=== PATIENT | male | born 1960 | race Caucasian/White ===

== ENCOUNTER 2023-10-11 17:01 | Inpatient (IN) ==
--- NOTE | 2023-10-11 17:22 | Emergency Department Note ---
Impression & Plan Chest discomfort, Elevated troponin, Dyspnea, Elevated d-dimer, Elevated serum lactate dehydrogenase ED Provider Note CHIEF COMPLAINT: Shortness of breath HISTORY OF PRESENTING ILLNESS: This 62-year-old male patient presents to the emergency department from [facility] accompanied by correction officers for evaluation of shortness of breath. The patient states that he had a sudden onset of a feeling like his heart was racing and he became very short of breath around 3 pm today. He also started with a bad headache and dizziness at the same time as the SOB and heart racing started. Still having the headache and dizziness. No change in his vision, change in his speech, or known personality changes. Denies any fevers, cough, or URI symptoms. He feels like the symptoms are coming from his heart. 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 He denies any other history of heart problems. However, over the past 3 months his heart just hasn't been feeling right per patient. [place] like it was beating funny. Denies abdominal pain, nausea, or vomiting. Denies any urinary symptoms or problems with his BMs. He apparently had a temp of 100.7 F prior to transfer and had multiple EKGs that showed sinus tachycardia. The patient is not on any blood thinners and did not take any aspirin. The shortness of breath has improved upon arrival, but still feels like his heart is beating funny. However, he denies actual chest pain. REVIEW OF SYSTEMS: See HPI for pertinent positives and pertinent negatives. ALLERGIES: NKDA MEDICATIONS: None PAST MEDICAL HISTORY: Narcissistic personality disorder, Delusional disorder, hypercholesterolemia, HTN, BPH, CAD, h/o ME with stent placement. PHYSICAL EXAM: Vital Signs: Vitals are noted on the nurse's note and reviewed by myself. GENERAL: Non toxic in appearance and in no acute distress. SKIN: Capillary reflex less than 2 seconds. HEAD: Normocephalic, atraumatic. EARS: Bilateral external auditory canals clear without tragus tenderness. Bilateral tympanic membranes pearly chacon without erythema or effusion. No mastoid tenderness bilaterally. EYES: Pupils equal round and reactive to light and accommodation. Conjunctivae without injection, sclerae without icterus. Extraocular movements intact. NOSE: Patent, turbinates inflamed with no discharge. No sinus tenderness. MOUTH: Mucous membranes moist. Airway patent, uvula midline. Pharynx is not erythematous and not edematous without exudate. Pharynx without postnasal drip. No evidence for peritonsillar abscess. NECK: Supple without nuchal rigidity. No lymphadenopathy. HEART: Regular rate and rhythm without murmurs gallops or rubs. LUNGS: Clear to auscultation bilaterally without wheezes, rales or rhonchi. No accessory muscle use or retractions. ABDOMEN: Positive bowel sounds x 4. Normal tympanic percussion. Soft, nontender, without masses or organomegaly. MUSCULOSKELETAL: Bilateral calves are nontender to palpation. No erythema or edema of the bilateral lower extremities. Negative Homans' sign. NEURO: Patient was alert and oriented to person place and time. Normal mental status exam. No facial droop. Strength 5/5 and equal in the bilateral upper and lower extremities. No focal neurological deficits. DIFFERENTIAL DIAGNOSIS: Differential diagnosis includes angina, ME, pericarditis, myocarditis, aortic dissection, pleurisy, pneumothorax, PE, pneumonia, pneumomediastinum, esophagitis, esophageal spasm, GERD, perforated esophagus, perforated duodenal/gastric ulcer, pancreatitis, cholecystitis, costochondritis, musculoskeletal, bronchitis, URI, or others. ED COURSE AND MEDICAL DECISION MAKING: MONITOR: Continuous youth nutritional monitor: Order was placed for continuous youth nutritional monitor. Patient was placed on the youth nutritional monitor and continuous pulse ox. Patient was noted to be in sinus tachycardia at an initial rate of 110 bpm per my interpretation. EKG: EKG was interpreted by myself as sinus tachycardia at 111 bpm with no acute ST or T wave changes. Repeat EKG was interpreted by myself and Dr. Appiah as normal sinus rhythm at 98 bpm with no acute ST or T wave changes. MEDICATIONS GIVEN: Aspirin 324 mg p.o. chewed. A total of 2 L normal saline solution bolus. DuoNeb treatment. Cefepime 2 g IV. INTERPRETATION OF LABS: I interpreted the labs with full lab results as below in the lab section of this note. CBC without leukocytosis, anemia, or thrombocytopenia. Coags were normal. Sodium 135, glucose 136, magnesium 1.6, total bilirubin 1.5, and AST 40. CMP otherwise normal. Lipase normal. TSH normal. High-sensitivity troponin elevated at 60.7. D-dimer elevated at 5310. Lactate elevated at 2.5. Respiratory bio fire was negative. Blood cultures negative. The patient was unable to give a urine sample while in the emergency department. INTERPRETATION OF IMAGING: Imaging studies were interpreted by myself and read by radiology as per the imaging section of this note. Chest x-ray was negative for acute cardiopulmonary etiology. CT scan of the head without contrast showed no acute intracranial abnormality. CTA of the head and neck with IV contrast showed moderate to high-grade stenosis at the origin of both vertebral arteries, but no other acute abnormalities. CTA of the chest with IV contrast showed no evidence for PE, consolidation, or pleural effusion. However, there was diffuse peribronchial thickening suggestive of bronchitis/reactive airway disease. There is a foci of air trapping seen throughout both lungs as well as coronary artery atherosclerosis and hepatic steatosis. EXTERNAL RECORDS REVIEWED: I reviewed the records sent with the patient from the present. CONSULTATIONS: On-call hospitalist MDM SUMMARY: I examined the patient. The patient states that he has been having a funny feeling in his heart for the past 3 months with an abrupt onset of shortness of breath, headache, and dizziness today. He states that his symptoms have improved, but just still does not feel right. He is having difficulty explaining his exact symptoms to me at this time. He did have a low-grade fever at the present, but is afebrile in the emergency department. The patient is tachycardic, but not hypoxic. An IV lock was placed and labs were drawn. The patient was given aspirin 324 mg p.o. chewed. The patient declined any medication for pain. He was given a DuoNeb treatment without much change in his symptoms. Chest x-ray was negative. EKG was negative for STEMI. Respiratory bio fire was negative. The patient's D-dimer was elevated and CTA of the chest as well as CT/CTA of the head and neck were obtained and were as above. The patient's high-sensitivity troponin was elevated with repeat EKG without evidence of STEMI or acute changes compared to his previous EKG. Repeat troponin was still pending. The patient's lactate also came back elevated at 2.5. Blood cultures are pending. The patient was given cefepime 2 g IV. The patient was given a total of 2 L normal saline solution bolus based on ideal body weight, but also did not want to overload the patient with fluids due to his cardiac symptoms. I had a meaningful discussion about this patient with Dr. Appiah who agrees with my assessment and the treatment plan. Due to the patient's elevated troponin and elevated lactate along with his symptoms, we feel the patient requires admission for further evaluation and treatment. I spoke with the on-call hospitalist who agreed to admit the patient for further management. Please refer to their dictation for further details. The patient's care was transferred in stable condition. DIAGNOSIS: Chest pain and shortness of breath with elevated troponin concerning for NSTEMI Elevated lactate Elevated D-dimer Past Med/Surg History Medical History (Updated 10/11/23 @ 23:49 by Giselle Ring PA-C) Ischemic cardiomyopathy BPH (benign prostatic hyperplasia) HTN (hypertension) Hypercholesterolemia Delusional disorder Narcissistic personality disorder Smoker CAD (coronary artery disease) stent in 2017 Surgical History (Updated 10/11/23 @ 21:38 by Janis Bains DO) History of thumb surgery History of tonsillectomy History of ankle surgery Family History (Updated 10/11/23 @ 21:36 by Janis Bains DO) Mother Coronary heart disease Father , at 53 yo from [place] Coronary heart disease Social History Smoking Status: Current every day smoker Tobacco Type: E-cigarettes / Vaping Cigarettes Per Day: 2; Do You Dip or Chew Tobacco: No; Tobacco Cessation Education Requested by Patient: No Hx Substance Use: No Preferred Language: Lao Communication Ability: Effective Livestock Nutritionist Required: No Beliefs That Will Affect Care: None Current Living Situation: Other Current Living Situation Comment: correctional facility Other Information That Helps Us Care for You: No Feels Safe at Home: Yes Safety Concerns: Feels Safe At This Time Assistive Devices: Denture - Upper and Glasses Allergies Allergies Allergy/AdvReac Type Severity Reaction Status Date / Time No Known Allergies Allergy Verified 10/11/23 18:53 Home Meds Home Medications Medication Instructions Recorded Confirmed No Known Home Medications 10/11/23 10/11/23 Results & Data (ED) Vital Signs Vital Signs - 24 hr 10/11/23 17:02 10/11/23 17:09 10/11/23 17:10 Temperature 36.6 C Temperature Source Oral Pulse Rate 105 H 105 H 110 H Pulse Rate from SpO2 Sensor 105 H 110 H Pulse Rhythm Regular Pulse Strength Normal Respiratory Rate 20 20 26 H Respiratory Effort / Characteristics Non-Labored Spontaneous Respiratory Depth Normal Respiratory Pattern Regular Blood Pressure 112/75 Blood Pressure Mean 87 Blood Pressure Position Sitting Pulse Oximetry 94 94 94 Pulse Oximetry [Index Finger] Oxygen Delivery Method Room Air Room Air Oxygen Delivery Method [Index Finger] Oxygen Flow Rate Sepsis Recent Fever Within 48 Hours Yes Sepsis New/Unexplained Change in Mental Status N/A Sepsis Action Taken by Nursing No Action Required Oxygen Flow Rate - Titration Pulse Oximetry Post Tiitration 10/11/23 17:15 10/11/23 17:15 10/11/23 17:15 Temperature Temperature Source Pulse Rate Pulse Rate from SpO2 Sensor Pulse Rhythm Pulse Strength Respiratory Rate Respiratory Effort / Characteristics Non-Labored Spontaneous Respiratory Depth Normal Respiratory Pattern Regular Blood Pressure Blood Pressure Mean Blood Pressure Position Pulse Oximetry 99 94 Pulse Oximetry [Index Finger] Oxygen Delivery Method Room Air Room Air Oxygen Delivery Method [Index Finger] Oxygen Flow Rate 4 Sepsis Recent Fever Within 48 Hours Sepsis New/Unexplained Change in Mental Status Sepsis Action Taken by Nursing Oxygen Flow Rate - Titration 0 Pulse Oximetry Post Tiitration 94 10/11/23 17:20 10/11/23 17:23 10/11/23 17:30 Temperature Temperature Source Pulse Rate 105 H 110 H 104 H Pulse Rate from SpO2 Sensor 105 H 104 H Pulse Rhythm Pulse Strength Respiratory Rate 23 22 Respiratory Effort / Characteristics Respiratory Depth Respiratory Pattern Blood Pressure Blood Pressure Mean Blood Pressure Position Pulse Oximetry 93 96 Pulse Oximetry [Index Finger] Oxygen Delivery Method Oxygen Delivery Method [Index Finger] Oxygen Flow Rate Sepsis Recent Fever Within 48 Hours Sepsis New/Unexplained Change in Mental Status Sepsis Action Taken by Nursing Oxygen Flow Rate - Titration Pulse Oximetry Post Tiitration 10/11/23 17:40 10/11/23 17:50 10/11/23 18:00 Temperature Temperature Source Pulse Rate 100 H 97 H 98 H Pulse Rate from SpO2 Sensor 100 H 97 H 96 H Pulse Rhythm Pulse Strength Respiratory Rate 21 26 H 21 Respiratory Effort / Characteristics Respiratory Depth Respiratory Pattern Blood Pressure Blood Pressure Mean Blood Pressure Position Pulse Oximetry 94 93 94 Pulse Oximetry [Index Finger] Oxygen Delivery Method Room Air Oxygen Delivery Method [Index Finger] Oxygen Flow Rate Sepsis Recent Fever Within 48 Hours Sepsis New/Unexplained Change in Mental Status Sepsis Action Taken by Nursing Oxygen Flow Rate - Titration Pulse Oximetry Post Tiitration 10/11/23 18:19 10/11/23 18:20 10/11/23 18:30 Temperature Temperature Source Pulse Rate 96 H 102 H Pulse Rate from SpO2 Sensor 96 H 102 H 97 H Pulse Rhythm Pulse Strength Respiratory Rate 25 H 21 25 H Respiratory Effort / Characteristics Respiratory Depth Respiratory Pattern Blood Pressure Blood Pressure Mean Blood Pressure Position Pulse Oximetry 96 96 95 Pulse Oximetry [Index Finger] Oxygen Delivery Method Room Air Oxygen Delivery Method [Index Finger] Oxygen Flow Rate Sepsis Recent Fever Within 48 Hours Sepsis New/Unexplained Change in Mental Status Sepsis Action Taken by Nursing Oxygen Flow Rate - Titration Pulse Oximetry Post Tiitration 10/11/23 18:56 10/11/23 18:56 10/11/23 19:00 Temperature Temperature Source Pulse Rate 100 H Pulse Rate from SpO2 Sensor 100 H Pulse Rhythm Pulse Strength Respiratory Rate 6 L 19 Respiratory Effort / Characteristics Respiratory Depth Respiratory Pattern Blood Pressure 108/58 L Blood Pressure Mean 65 Blood Pressure Position Pulse Oximetry 96 Pulse Oximetry [Index Finger] Oxygen Delivery Method Oxygen Delivery Method [Index Finger] Oxygen Flow Rate Sepsis Recent Fever Within 48 Hours Sepsis New/Unexplained Change in Mental Status Sepsis Action Taken by Nursing Oxygen Flow Rate - Titration Pulse Oximetry Post Tiitration 10/11/23 19:10 10/11/23 19:20 10/11/23 19:30 Temperature Temperature Source Pulse Rate 99 H 98 H 98 H Pulse Rate from SpO2 Sensor 100 H 98 H 99 H Pulse Rhythm Pulse Strength Respiratory Rate 23 22 19 Respiratory Effort / Characteristics Respiratory Depth Respiratory Pattern Blood Pressure Blood Pressure Mean Blood Pressure Position Pulse Oximetry 91 92 94 Pulse Oximetry [Index Finger] Oxygen Delivery Method Oxygen Delivery Method [Index Finger] Oxygen Flow Rate Sepsis Recent Fever Within 48 Hours Sepsis New/Unexplained Change in Mental Status Sepsis Action Taken by Nursing Oxygen Flow Rate - Titration Pulse Oximetry Post Tiitration 10/11/23 19:40 10/11/23 19:50 10/11/23 20:00 Temperature Temperature Source Pulse Rate 98 H 95 H 92 H Pulse Rate from SpO2 Sensor 97 H 95 H 93 H Pulse Rhythm Pulse Strength Respiratory Rate 22 19 26 H Respiratory Effort / Characteristics Respiratory Depth Respiratory Pattern Blood Pressure Blood Pressure Mean Blood Pressure Position Pulse Oximetry 94 94 95 Pulse Oximetry [Index Finger] Oxygen Delivery Method Room Air Oxygen Delivery Method [Index Finger] Oxygen Flow Rate Sepsis Recent Fever Within 48 Hours Sepsis New/Unexplained Change in Mental Status Sepsis Action Taken by Nursing Oxygen Flow Rate - Titration Pulse Oximetry Post Tiitration 10/11/23 20:10 10/11/23 20:16 10/11/23 20:16 Temperature Temperature Source Pulse Rate 95 H 107 H Pulse Rate from SpO2 Sensor 94 H 105 H Pulse Rhythm Pulse Strength Respiratory Rate 5 L 15 Respiratory Effort / Characteristics Respiratory Depth Respiratory Pattern Blood Pressure 106/70 106/70 Blood Pressure Mean 82 83 Blood Pressure Position Pulse Oximetry 100 95 Pulse Oximetry [Index Finger] Oxygen Delivery Method Room Air Oxygen Delivery Method [Index Finger] Oxygen Flow Rate Sepsis Recent Fever Within 48 Hours Sepsis New/Unexplained Change in Mental Status Sepsis Action Taken by Nursing Oxygen Flow Rate - Titration Pulse Oximetry Post Tiitration 10/11/23 20:20 10/11/23 20:30 10/11/23 20:30 Temperature Temperature Source Pulse Rate 110 H 112 H Pulse Rate from SpO2 Sensor 111 H 109 H Pulse Rhythm Pulse Strength Respiratory Rate 14 20 Respiratory Effort / Characteristics Respiratory Depth Respiratory Pattern Blood Pressure 110/73 Blood Pressure Mean 79 Blood Pressure Position Pulse Oximetry 98 96 Pulse Oximetry [Index Finger] Oxygen Delivery Method Oxygen Delivery Method [Index Finger] Oxygen Flow Rate Sepsis Recent Fever Within 48 Hours Sepsis New/Unexplained Change in Mental Status Sepsis Action Taken by Nursing Oxygen Flow Rate - Titration Pulse Oximetry Post Tiitration 10/11/23 20:40 10/11/23 20:50 10/11/23 20:55 Temperature Temperature Source Pulse Rate 111 H 110 H Pulse Rate from SpO2 Sensor 110 H 110 H Pulse Rhythm Pulse Strength Respiratory Rate 20 19 Respiratory Effort / Characteristics Respiratory Depth Respiratory Pattern Blood Pressure Blood Pressure Mean Blood Pressure Position Pulse Oximetry 96 97 Pulse Oximetry [Index Finger] 98 Oxygen Delivery Method Oxygen Delivery Method [Index Finger] Room Air Oxygen Flow Rate Sepsis Recent Fever Within 48 Hours Sepsis New/Unexplained Change in Mental Status Sepsis Action Taken by Nursing Oxygen Flow Rate - Titration Pulse Oximetry Post Tiitration 10/11/23 21:32 10/11/23 21:44 10/11/23 21:44 Temperature Temperature Source Pulse Rate 106 H Pulse Rate from SpO2 Sensor Pulse Rhythm Pulse Strength Respiratory Rate 15 15 Respiratory Effort / Characteristics Respiratory Depth Respiratory Pattern Blood Pressure 110/67 Blood Pressure Mean 85 Blood Pressure Position Pulse Oximetry Pulse Oximetry [Index Finger] Oxygen Delivery Method Oxygen Delivery Method [Index Finger] Oxygen Flow Rate Sepsis Recent Fever Within 48 Hours Sepsis New/Unexplained Change in Mental Status Sepsis Action Taken by Nursing Oxygen Flow Rate - Titration Pulse Oximetry Post Tiitration Laboratory Data 10/11/23 17:15 10/11/23 17:15 Lab Results 10/11/23 10/11/23 10/11/23 Range/Units 17:15 18:02 19:35 WBC 9.15 (4.8-10.8) K/ul RBC 5.16 (4.70-6.10) M/uL Hgb 15.0 (14.0-18.0) g/dl Hct 44.3 (42.0-52.0) % MCV 85.9 (80.0-100.0) fL MCH 29.1 (25.0-34.0) pg MCHC 33.9 (32.0-36.0) g/dL RDW Std Deviation 41.4 (36.4-46.3) fL RDW Coeff of Kaleb 13.2 (11.5-14.5) % Plt Count 189 (130-400) K/uL MPV 11.0 (9.4-12.4) fL Immature Gran % (Auto) 2.0 % Neut % (Auto) 92.5 % Lymph % (Auto) 3.1 % [place] % (Auto) 1.9 % Eos % (Auto) 0.2 % Baso % (Auto) 0.3 % Neut # (Auto) 8.47 H (1.40-6.50) K/uL Lymph # (Auto) 0.28 L (1.20-3.40) K/uL [place] # (Auto) 0.17 (0.11-0.59) K/uL Eos # (Auto) 0.02 (0.00-0.50) K/uL Baso # (Auto) 0.03 (0.00-0.20) K/uL Immature Gran # (Auto) 0.18 (0.01-0.20) K/uL PT 11.6 (9.0-12.0) Seconds INR 1.1 (0.9-1.1) APTT 27 (21-31) Seconds PTT Ratio 1.0 D-Dimer 5310 H* (0-500) ug/L FEU Sodium 135 L (136-145) mmol/L Potassium 4.0 (3.5-5.1) mmol/L Chloride 104 (98-107) mmol/L Carbon Dioxide 21 (21-32) mmol/L Anion Gap 10 (3-11) BUN 21 (6-23) mg/dl Creatinine 1.28 (0.6-1.4) mg/dl Est Cr Clr Drug Dosing Not Reportable Est GFR ( Amer) 70.0 ml/min Est GFR (Non-Af Amer) 60.4 ml/min BUN/Creatinine Ratio 16.4 (10-20) Glucose 136 H (70-99(Fasting)) mg/dl Lactate (0.4-2.0) mmol/L Calcium 8.6 (8.6-10.3) mg/dl Magnesium 1.6 L (1.7-2.4) mg/dl Total Bilirubin 1.5 H (0.2-1.0) mg/dl AST 40 H (13-39) U/L ALT 41 (7-52) U/L Alkaline Phosphatase 55 (34-104) U/L Troponin I High Sens 60.7 H* 282.9 H* D (0-20) pg/ml Total Protein 7.0 (6.0-8.3) gm/dl Albumin 3.9 (3.4-5.0) gm/dl Globulin 3.1 (2.5-4.0) gm/dl Albumin/Globulin Ratio 1.3 (0.9-2) Lipase 18 (11-82) U/L TSH 1.114 (0.300-4.500) uIu/ml Adenovirus (PCR) Not Detected (NotDetected) B. pertussis DNA (PCR) Not Detected (NotDetected) B.parapertussis DNA PCR Not Detected (NotDetected) C. pneumoniae DNA (PCR) Not Detected (NotDetected) Coronavirus OC43 (PCR) Not Detected (NotDetected) Coronavirus HKU1 (PCR) Not Detected (NotDetected) Coronavirus 229E (PCR) Not Detected (NotDetected) SARS-CoV-2 (PCR) Not Detected (NotDetected) Coronavirus NL63 (PCR) Not Detected (NotDetected) Human Metapneumovir PCR Not Detected (NotDetected) Influenza Type A (PCR) Not Detected (NotDetected) Influenza Type B (PCR) Not Detected (NotDetected) M. pneumoniae (PCR) Not Detected (NotDetected) Parainfluenza 1 (PCR) Not Detected (NotDetected) Parainfluenza 2 (PCR) Not Detected (NotDetected) Parainfluenza 3 (PCR) Not Detected (NotDetected) Parainfluenza 4 (PCR) Not Detected (NotDetected) RSV (PCR) Not Detected (NotDetected) Entero/Rhino (PCR) Not Detected (NotDetected) 10/11/23 Range/Units 19:50 WBC (4.8-10.8) K/ul RBC (4.70-6.10) M/uL Hgb (14.0-18.0) g/dl Hct (42.0-52.0) % MCV (80.0-100.0) fL MCH (25.0-34.0) pg MCHC (32.0-36.0) g/dL RDW Std Deviation (36.4-46.3) fL RDW Coeff of Kaleb (11.5-14.5) % Plt Count (130-400) K/uL MPV (9.4-12.4) fL Immature Gran % (Auto) % Neut % (Auto) % Lymph % (Auto) % [place] % (Auto) % Eos % (Auto) % Baso % (Auto) % Neut # (Auto) (1.40-6.50) K/uL Lymph # (Auto) (1.20-3.40) K/uL [place] # (Auto) (0.11-0.59) K/uL Eos # (Auto) (0.00-0.50) K/uL Baso # (Auto) (0.00-0.20) K/uL Immature Gran # (Auto) (0.01-0.20) K/uL PT (9.0-12.0) Seconds INR (0.9-1.1) APTT (21-31) Seconds PTT Ratio D-Dimer (0-500) ug/L FEU Sodium (136-145) mmol/L Potassium (3.5-5.1) mmol/L Chloride (98-107) mmol/L Carbon Dioxide (21-32) mmol/L Anion Gap (3-11) BUN (6-23) mg/dl Creatinine (0.6-1.4) mg/dl Est Cr Clr Drug Dosing Est GFR ( Amer) ml/min Est GFR (Non-Af Amer) ml/min BUN/Creatinine Ratio (10-20) Glucose (70-99(Fasting)) mg/dl Lactate 2.5 H* (0.4-2.0) mmol/L Calcium (8.6-10.3) mg/dl Magnesium (1.7-2.4) mg/dl Total Bilirubin (0.2-1.0) mg/dl AST (13-39) U/L ALT (7-52) U/L Alkaline Phosphatase (34-104) U/L Troponin I High Sens (0-20) pg/ml Total Protein (6.0-8.3) gm/dl Albumin (3.4-5.0) gm/dl Globulin (2.5-4.0) gm/dl Albumin/Globulin Ratio (0.9-2) Lipase (11-82) U/L TSH (0.300-4.500) uIu/ml Adenovirus (PCR) (NotDetected) B. pertussis DNA (PCR) (NotDetected) B.parapertussis DNA PCR (NotDetected) C. pneumoniae DNA (PCR) (NotDetected) Coronavirus OC43 (PCR) (NotDetected) Coronavirus HKU1 (PCR) (NotDetected) Coronavirus 229E (PCR) (NotDetected) SARS-CoV-2 (PCR) (NotDetected) Coronavirus NL63 (PCR) (NotDetected) Human Metapneumovir PCR (NotDetected) Influenza Type A (PCR) (NotDetected) Influenza Type B (PCR) (NotDetected) M. pneumoniae (PCR) (NotDetected) Parainfluenza 1 (PCR) (NotDetected) Parainfluenza 2 (PCR) (NotDetected) Parainfluenza 3 (PCR) (NotDetected) Parainfluenza 4 (PCR) (NotDetected) RSV (PCR) (NotDetected) Entero/Rhino (PCR) (NotDetected) Administered Medications Atorvastatin Calcium (Atorvastatin 40 Mg Tab) 40 mg PO HS FLORECITA Stop: 11/10/23 21:59 Last Admin: 10/11/23 23:00 Dose: 40 mg Documented By: DLH Magnesium Sulfate/Dextrose (Magnesium Sulfate / D5w) 1 gm in 100 mls @ 50 mls/hr IV Q2H FLORECITA Stop: 10/12/23 03:29 Last Admin: 10/11/23 22:18 Dose: 50 mls/hr Documented By: SUKHI Heparin Sodium/Dextrose (Heparin Sodium/Dextrose) 25,000 units in 500 mls @ 31 mls/hr IV .[id number] [facility] [place]; Protocol Stop: 11/10/23 22:14 Last Admin: 10/11/23 22:36 Dose: 1,550 units/hr, 31 mls/hr Documented By: SUKHI Co-signed By: KVNG Metoprolol Tartrate (Metoprolol Tartrate 25 Mg Tab) 25 mg PO BID [facility] [place] Stop: 11/10/23 21:59 Last Admin: 10/11/23 22:18 Dose: 25 mg Documented By: SUKHI Nitroglycerin (Nitroglycerin 2% Ointment 30gm Tube) 0.5 inch EXT Q6H [facility] [place] Stop: 11/10/23 21:59 Last Admin: 10/11/23 22:18 Dose: 0.5 inch Documented By: SUKHI Discontinued Medications Acetaminophen (Acetaminophen 500 Mg Tab) 1,000 mg PO ONCE ONE Stop: 10/11/23 21:53 Last Admin: 10/11/23 22:20 Dose: 1,000 mg Documented By: USKHI Albuterol (Albut/Ipratrop 3mg/0.5mg Neb 3 Ml Vial) 3 ml NEB NOW STA; Protocol Stop: 10/11/23 19:29 Last Admin: 10/11/23 20:00 Dose: 3 ml Documented By: CORDELIA Aspirin (Aspirin Chew 324 Mg) 324 mg PO NOW STA Stop: 10/11/23 17:36 Last Admin: 10/11/23 18:20 Dose: 324 mg Documented By: BALTAZAR Heparin Sodium (Porcine) (Heparin Sod (Porcine) 1000 Unit/Ml) 7,000 units IV NOW ONE Stop: 10/11/23 22:31 Last Admin: 10/11/23 22:36 Dose: 7,000 units Documented By: SUKHI Co-signed By: KVNG Heparin Sodium (Porcine) (Heparin Sod (Porcine) 1000 Unit/Ml) Confirm Administered Dose 1,000 units .ROUTE .STK-MED ONE Stop: 10/11/23 22:21 Last Admin: 10/11/23 22:22 Dose: Not Given Documented By: SUKHI Heparin Sodium/Dextrose (Heparin 14447 Unit/500 Ml D5w) Confirm Administered Dose 25,000 units IV .STK-MED ONE Stop: 10/11/23 22:21 Last Admin: 10/11/23 22:21 Dose: Not Given Documented By: SUKHI Sodium Chloride (Nss) 500 mls @ 999 mls/hr IV .Q31M STA Stop: 10/11/23 18:05 Last Infusion: 10/11/23 19:05 Dose: Infused Documented By: Admin: 10/11/23 18:20 Dose: 999 mls/hr Documented By: BALTAZAR Sodium Chloride (Nss) 500 mls @ 999 mls/hr IV .Q31M ONE Stop: 10/11/23 19:13 Last Infusion: 10/11/23 20:29 Dose: Infused Documented By: Admin: 10/11/23 19:55 Dose: 999 mls/hr Documented By: CORDELIA Cefepime HCl (Maxipime) 2,000 mg in 20 mls @ 5 mls/min IV NOW STA; Protocol Stop: 10/11/23 18:46 Last Admin: 10/11/23 19:56 Dose: 5 mls/min Documented By: CORDELIA Sodium Chloride (Nss) 1,000 mls @ 999 mls/hr IV .Q1H1M ONE Stop: 10/11/23 21:17 Last Infusion: 10/11/23 21:33 Dose: Infused Documented By: Admin: 10/11/23 20:29 Dose: 999 mls/hr Documented By: CORDELIA Ioversol (Optiray 320 125ml) 119 ml IV ONCE ONE Stop: 10/11/23 18:42 Last Admin: 10/11/23 18:41 Dose: 119 ml Documented By: STEFFANY Morphine Sulfate (Morphine Sulfate 2 Mg/Ml Carp) 2 mg IV NOW STA Stop: 10/11/23 21:53 Last Admin: 10/11/23 22:18 Dose: 2 mg Documented By: SUKHI Imaging Data Radiologist's Impression: Chest X-Ray 10/11/23 17:35 SINGLE VIEW CHEST CLINICAL HISTORY: Atypical chest pain. FINDINGS: 2 AP, portable, upright chest radiographs are obtained. No prior studies are available for comparison at the time of dictation. The examination is degraded by portable technique and apical lordotic positioning. The cardiomediastinal silhouette is unremarkable. There is mild bibasilar atelectasis. The lungs and pleural spaces are otherwise clear. No pneumothorax is seen. The bony thorax is grossly intact. IMPRESSION: No active disease in the chest. ACT 112: Negative or not required by law. Electronically signed by: Jose L Garcia M.D. 10/11/2023 6:[address] 10/11/23 17:35 CT SCAN OF THE BRAIN WITHOUT IV CONTRAST CLINICAL HISTORY: Headache and dizziness. COMPARISON STUDY: No priors. TECHNIQUE: Unenhanced axial CT scan of the brain is performed from the vertex to the skull base. A dose lowering technique was utilized adhering to the principles of ALARA. CT DOSE: 625.8 mGy.cm FINDINGS: Brain parenchyma: There is age-related involutional change noting minimal microangiopathic disease. There is no hemorrhage, mass effect, or evidence of acute territorial ischemia by CT criteria. Chacon-white matter differentiation is preserved. No extra-axial fluid collection is seen. Ventricles, sulci, cisterns: Prominent secondary to involutional change. Intracranial vasculature: There is atherosclerotic calcification of the cavernous carotid arteries. Calvarium: Unremarkable. Sinuses and mastoids: The visualized paranasal sinuses are clear. The mastoid air cells are well pneumatized. Orbits: The bony orbits are grossly intact. IMPRESSION: There is no hemorrhage, mass effect, or evidence of acute territorial ischemia by CT criteria. ACT 112: Negative or not required by law. Electronically signed by: Jose L Garcia M.D. 10/11/2023 6:14 PM Chest CTA 10/11/23 18:20 CT ANGIOGRAM OF THE CHEST CLINICAL HISTORY: Dyspnea. Headache and dizziness. COMPARISON STUDY: Chest x-ray dated 10/11/2023. TECHNIQUE: Following the IV administration of 119 cc of Optiray 320, CT angiogram of the chest was performed from the upper abdomen to the thoracic inlet utilizing the pulmonary embolus protocol. Images are reviewed in the axial, sagittal, and coronal planes. 3-D MIPS images are created and assessed. IV contrast was administered without complication. A dose lowering technique was utilized adhering to the principles of ALARA. FINDINGS: Thyroid: Imaged portions of the thyroid gland are normal in size and attenuation. Thoracic aorta: There is mild atherosclerotic calcification of the thoracic aorta, which is normal in caliber and demonstrates standard 3-vessel arch anatomy. No dissection is seen. Pulmonary vasculature: The pulmonary trunk is normal in caliber. There are no filling defects identified in main, lobar, or segmental pulmonary branches to suggest pulmonary embolus. Heart: The heart is top normal in size and without pericardial effusion. The coronary arteries are densely calcified. Lungs and pleural spaces: There is mild emphysematous change. No airspace consolidation or pleural effusion is identified. Foci of air trapping are seen throughout both lungs, and there are foci of scar/atelectasis throughout both lungs. Diffuse peribronchial thickening suggests bronchitis/reactive airway disease. The trachea and central airways are clear. A 3 mm pleural-based nodule at the left lung base is seen on image #56. Mediastinum: There is no mediastinal lymphadenopathy. Linda: Clear. Axillae: There is no axillary lymphadenopathy. Upper abdomen: There is severe hepatic steatosis. Fatty sparing is noted adjacent to the gallbladder fossa. A 1.0 cm cyst is noted in the left lobe of the liver. A small hiatal hernia is identified. Skeletal structures: No lytic or blastic bony lesions are seen. Degenerative change is noted in the shoulders and spine. IMPRESSION: 1. There is no evidence of pulmonary embolus in the main, lobar, or segmental pulmonary arteries. 2. There is no airspace consolidation or pleural effusion. 3. Diffuse peribronchial thickening suggests bronchitis/reactive airway disease. Correlate clinically. 4. Foci of air trapping are seen throughout both lungs. 5. Coronary artery atherosclerosis. 6. Hepatic steatosis. 7. Additional findings as above. ACT 112: Negative or not required by law. Electronically signed by: Jose L Garcia M.D. 10/11/2023 7:15 PM Head CTA 10/11/23 18:20 CT ANGIOGRAM OF THE BRAIN; CT ANGIOGRAM OF THE NECK CLINICAL HISTORY: Headache and dizziness. COMPARISON STUDY: Unenhanced CT of the brain performed the same day 10/11/2023. TECHNIQUE: Following the IV administration of 119 of Optiray 320, CT angiogram of the head and neck was performed from the aortic arch to the vertex. Images are reviewed in the axial, sagittal, and coronal planes. 3-D MIPS images are created and assessed. IV contrast was administered without complication. All measurements were calculated based on NASCET criteria. A dose lowering technique was utilized adhering to the principles of ALARA. CT DOSE: 2610.85 mGy.cm FINDINGS: Brain parenchyma: There is no evidence of hemorrhage, mass effect, or acute territorial ischemia by CT criteria noting angiographic phase technique. There is no evidence of enhancing mass lesion on the angiogram phase images. The ventricles, sulci, and cisterns are normal in configuration. Chacon-white matter differentiation is preserved. No extra-axial fluid collection is seen. Thoracic aorta: There is atherosclerotic calcification of the thoracic aorta. Visualized portions of the thoracic aorta are normal in caliber. The aortic arch demonstrates standard 3-vessel anatomy. Right carotid arterial system: The right common carotid artery is widely patent, as are the right internal and external carotid arteries. Calcified plaque is noted in the carotid bulb. Left carotid arterial system: The left common carotid artery is widely patent, as are the left internal and external carotid arteries. Calcified plaque is noted in the carotid bulb. Vertebral arteries: There is moderate to high-grade stenosis at the origin of both vertebral arteries. The vertebral arteries are otherwise patent bilaterally and codominant. Subclavian arteries: Widely patent bilaterally. Intracranial vasculature: There is atherosclerotic calcification of the carotid bulbs. The internal carotid arteries are patent at the skull base, as are the anterior and middle cerebral arteries bilaterally. The vertebrobasilar system and posterior cerebral arteries are widely patent. The vertebral arteries are codominant. There is origin of the left posterior cerebral artery. There is no aneurysm, high-grade stenosis, or focal vessel cut off seen throughout the intracranial circulation. Jugular veins: Patent bilaterally. Dural sinuses: Patent. Lung apices: There is mild emphysematous change. Upper lobe lung parenchyma is otherwise clear as imaged. Soft tissues: The visualized pharyngeal soft tissues are normal in appearance noting angiographic phase technique. The oropharyngeal airway appears widely patent. The salivary and thyroid glands are normal in appearance. No cervical lymphadenopathy is seen. Skeletal structures: The calvarium appears intact. The cervical spine is maintained noting multilevel spondylosis. Orbits: The bony orbits are intact. Orbital contents are normal as visualized. Sinuses and mastoids: There is trace mucosal thickening within the left maxillary antrum, the ethmoid sinuses, and the frontal sinuses. The mastoid air cells are well pneumatized. IMPRESSION: 1. There is no evidence of hemorrhage, mass effect, or acute territorial ischemia by CT criteria noting angiographic phase technique. 2. Unremarkable CT angiogram of the brain. 3. 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 4. Otherwise unremarkable CT angiogram of the neck. ACT 112: Negative or not required by law. Electronically signed by: Jose L Garcia M.D. 10/11/2023 7:08 PM Neck CTA 10/11/23 18:20 CT ANGIOGRAM OF THE BRAIN; CT ANGIOGRAM OF THE NECK CLINICAL HISTORY: Headache and dizziness. COMPARISON STUDY: Unenhanced CT of the brain performed the same day 10/11/2023. TECHNIQUE: Following the IV administration of 119 of Optiray 320, CT angiogram of the head and neck was performed from the aortic arch to the vertex. Images are reviewed in the axial, sagittal, and coronal planes. 3-D MIPS images are created and assessed. IV contrast was administered without complication. All measurements were calculated based on NASCET criteria. A dose lowering technique was utilized adhering to the principles of ALARA. CT DOSE: 2610.85 mGy.cm FINDINGS: Brain parenchyma: There is no evidence of hemorrhage, mass effect, or acute territorial ischemia by CT criteria noting angiographic phase technique. There is no evidence of enhancing mass lesion on the angiogram phase images. The ventricles, sulci, and cisterns are normal in configuration. Chacon-white matter differentiation is preserved. No extra-axial fluid collection is seen. Thoracic aorta: There is atherosclerotic calcification of the thoracic aorta. Visualized portions of the thoracic aorta are normal in caliber. The aortic arch demonstrates standard 3-vessel anatomy. Right carotid arterial system: The right common carotid artery is widely patent, as are the right internal and external carotid arteries. Calcified plaque is noted in the carotid bulb. Left carotid arterial system: The left common carotid artery is widely patent, as are the left internal and external carotid arteries. Calcified plaque is noted in the carotid bulb. Vertebral arteries: There is moderate to high-grade stenosis at the origin of both vertebral arteries. The vertebral arteries are otherwise patent bilaterally and codominant. Subclavian arteries: Widely patent bilaterally. Intracranial vasculature: There is atherosclerotic calcification of the carotid bulbs. The internal carotid arteries are patent at the skull base, as are the anterior and middle cerebral arteries bilaterally. The vertebrobasilar system and posterior cerebral arteries are widely patent. The vertebral arteries are codominant. There is origin of the left posterior cerebral artery. There is no aneurysm, high-grade stenosis, or focal vessel cut off seen throughout the intracranial circulation. Jugular veins: Patent bilaterally. Dural sinuses: Patent. Lung apices: There is mild emphysematous change. Upper lobe lung parenchyma is otherwise clear as imaged. Soft tissues: The visualized pharyngeal soft tissues are normal in appearance noting angiographic phase technique. The oropharyngeal airway appears widely patent. The salivary and thyroid glands are normal in appearance. No cervical lymphadenopathy is seen. Skeletal structures: The calvarium appears intact. The cervical spine is maintained noting multilevel spondylosis. Orbits: The bony orbits are intact. Orbital contents are normal as visualized. Sinuses and mastoids: There is trace mucosal thickening within the left maxillary antrum, the ethmoid sinuses, and the frontal sinuses. The mastoid air cells are well pneumatized. IMPRESSION: 1. There is no evidence of hemorrhage, mass effect, or acute territorial ischemia by CT criteria noting angiographic phase technique. 2. Unremarkable CT angiogram of the brain. 3. 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 4. Otherwise unremarkable CT angiogram of the neck. ACT 112: Negative or not required by law. Electronically signed by: Jose L Garcia M.D. 10/11/2023 7:08 PM Discharge Plan Visit Data Chief Complaint: Shortness of Breath/Dyspnea ED Provider: Jose L Appiah ED Midlevel Provider: Giselle Ring Discharge Problem: Chest discomfort, Elevated troponin, Dyspnea, Elevated d-dimer, Elevated serum lactate dehydrogenase Patient Disposition: Admitted As Inpatient Condition: Good Discharge Instructions Interventions: ED Discharge Assessment Last Done: 10/11/23 22:13 Discharge Problem: Dyspnea Qualifiers: Dyspnea type: unspecified Qualified Code(s): R06.00 - Dyspnea, unspecified
[2023-10-11] MEDS ORDERED: ASPIRIN CHEW 324 MG PO STA (17:35)
[2023-10-11] MEDS ORDERED: SODIUM CHLORIDE 0.9% 500 ML IV STA (17:35)
[2023-10-11 18:13] LABS: INR 1.1 (0.9-1.1); Partial Thromboplastin Time 27 Seconds (21-31); Prothrombin Time 11.6 Seconds (9.0-12.0)
[2023-10-11 18:16] LABS: Albumin Level 3.9 gm/dl (3.4-5.0); Anion Gap 10 (3-11); Bilirubin,Total 1.5 mg/dl (0.2-1.0); Calcium 8.6 mg/dl (8.6-10.3); Carbon Dioxide 21 mmol/L (21-32); Chloride 104 mmol/L (98-107); Magnesium 1.6 mg/dl (1.7-2.4); Sodium 135 mmol/L (136-145)
--- NOTE | 2023-10-11 18:16 | CT Scan Report ---
CT SCAN OF THE BRAIN WITHOUT IV CONTRAST CLINICAL HISTORY: Headache and dizziness. COMPARISON STUDY: No priors. TECHNIQUE: Unenhanced axial CT scan of the brain is performed from the vertex to the skull base. A do se lowering technique was utilized adhering to the principles of ALARA. CT DOSE: 625.8 mGy.cm FINDINGS: Brain parenchyma: There is age-related involutional change noting minimal microangiopathic disease. T here is no hemorrhage, mass effect, or evidence of acute territorial ischemia by CT criteria. Chacon-wh ite matter differentiation is preserved. No extra-axial fluid collection is seen. Ventricles, sulci, cisterns: Prominent secondary to involutional change. Intracranial vasculature: There is atherosclerotic calcification of the cavernous carotid arteries. Calvarium: Unremarkable. Sinuses and mastoids: The visualized paranasal sinuses are clear. The mastoid air cells are well pneu matized. Orbits: The bony orbits are grossly intact. IMPRESSION: There is no hemorrhage, mass effect, or evidence of acute territorial ischemia by CT dennis rojas. ACT 112: Negative or not required by law. Electronically signed by: Jose L Garcia M.D. 10/11/2023 6:14 PM
[2023-10-11 18:17] LABS: D Dimer 5310 ug/L FEU (0-500)
--- NOTE | 2023-10-11 18:20 | XRay Report ---
SINGLE VIEW CHEST CLINICAL HISTORY: Atypical chest pain. FINDINGS: 2 AP, portable, upright chest radiographs are obtained. No prior studies are available for comparison at the time of dictation. The examination is degraded by portable technique and apical raoul dotic positioning. The cardiomediastinal silhouette is unremarkable. There is mild bibasilar atelecta sis. The lungs and pleural spaces are otherwise clear. No pneumothorax is seen. The bony thorax is gr ossly intact. IMPRESSION: No active disease in the chest. ACT 112: Negative or not required by law. Electronically signed by: Jose L Garcia M.D. 10/11/2023 6:18 PM
[2023-10-11 18:22] LABS: Alanine Aminotransferase 41 U/L (7-52); Albumin Globulin Ratio 1.3 (0.9-2); Alkaline Phosphatase 55 U/L (34-104); Aspartate Aminotransferase 40 U/L (13-39); BUN Creatinine Ratio 16.4 (10-20); Blood Urea Nitrogen 21 mg/dl (6-23); Est GFR (Non-African American) 60.4 ml/min; Globulin 3.1 gm/dl (2.5-4.0); Glucose 136 mg/dl (70-99(Fasting)); Lipase 18 U/L (11-82)
[2023-10-11 18:29] LABS: Troponin I High Sensitivity 60.7 pg/ml (0-20)
[2023-10-11 18:30] LABS: Thyroid Stimulating Hormone 1.114 uIu/ml (0.300-4.500)
[2023-10-11] MEDS ORDERED: OPTIRAY 320 125ml IV ONE (18:41)
[2023-10-11] MEDS ORDERED: CEFEPIME 2,000 MG/20 ML VIAL IV STA (18:43)
[2023-10-11] MEDS ORDERED: SODIUM CHLORIDE 0.9% 500 ML IV ONE (18:43)
[2023-10-11 19:06] LABS: Hematocrit (blood only) 44.3 % (42.0-52.0); Mean Corpuscular Hemoglobin 29.1 pg (25.0-34.0); Mean Corpuscular Hgb Conc 33.9 g/dL (32.0-36.0); Mean Corpuscular Volume 85.9 fL (80.0-100.0); Platelet Count 189 K/uL (130-400); RDW Coefficient of Variation 13.2 % (11.5-14.5); RDW Standard Deviation 41.4 fL (36.4-46.3); Red Blood Count 5.16 M/uL (4.70-6.10); White Blood Count 9.15 K/ul (4.8-10.8)
[2023-10-11 19:08] LABS: Adenovirus PCR Not Detected (NotDetected); Bordetella parapertussis PCR Not Detected (NotDetected); Bordetella pertussis PCR Not Detected (NotDetected); Chlamydia pneumoniae PCR Not Detected (NotDetected); Coronavirus 229E PCR Not Detected (NotDetected); Coronavirus CoV-2 (COVID19)PCR Not Detected (NotDetected); Coronavirus HKU1 PCR Not Detected (NotDetected); Coronavirus NL63 PCR Not Detected (NotDetected); Coronavirus OC43PCR Not Detected (NotDetected); Human Metapneumovirus PCR Not Detected (NotDetected); Influenza A PCR Not Detected (NotDetected); Influenza B PCR Not Detected (NotDetected); Mycoplasma pneumoniae PCR Not Detected (NotDetected); Parainfluenza Virus 1 PCR Not Detected (NotDetected); Parainfluenza Virus 2 PCR Not Detected (NotDetected); Parainfluenza Virus 3 PCR Not Detected (NotDetected); Parainfluenza Virus 4 PCR Not Detected (NotDetected); Respiratory Syncytial VirusPCR Not Detected (NotDetected); Rhinovirus/Enterovirus PCR Not Detected (NotDetected)
--- NOTE | 2023-10-11 19:10 | CT Scan Report ---
CT ANGIOGRAM OF THE BRAIN; CT ANGIOGRAM OF THE NECK CLINICAL HISTORY: Headache and dizziness. COMPARISON STUDY: Unenhanced CT of the brain performed the same day 10/11/2023. TECHNIQUE: Following the IV administration of 119 of Optiray 320, CT angiogram of the head and neck w as performed from the aortic arch to the vertex. Images are reviewed in the axial, sagittal, and prakash nal planes. 3-D MIPS images are created and assessed. IV contrast was administered without complicati on. All measurements were calculated based on NASCET criteria. A dose lowering technique was utilize d adhering to the principles of ALARA. CT DOSE: 2610.85 mGy.cm FINDINGS: Brain parenchyma: There is no evidence of hemorrhage, mass effect, or acute territorial ischemia by C T criteria noting angiographic phase technique. There is no evidence of enhancing mass lesion on the angiogram phase images. The ventricles, sulci, and cisterns are normal in configuration. Chacon-white m atter differentiation is preserved. No extra-axial fluid collection is seen. Thoracic aorta: There is atherosclerotic calcification of the thoracic aorta. Visualized portions of the thoracic aorta are normal in caliber. The aortic arch demonstrates standard 3-vessel anatomy. Right carotid arterial system: The right common carotid artery is widely patent, as are the right int ernal and external carotid arteries. Calcified plaque is noted in the carotid bulb. Left carotid arterial system: The left common carotid artery is widely patent, as are the left internet marketer al and external carotid arteries. Calcified plaque is noted in the carotid bulb. Vertebral arteries: There is moderate to high-grade stenosis at the origin of both vertebral arteries . The vertebral arteries are otherwise patent bilaterally and codominant. Subclavian arteries: Widely patent bilaterally. Intracranial vasculature: There is atherosclerotic calcification of the carotid bulbs. The internal c arotid arteries are patent at the skull base, as are the anterior and middle cerebral arteries bilate rally. The vertebrobasilar system and posterior cerebral arteries are widely patent. The vertebral ar teries are codominant. There is origin of the left posterior cerebral artery. There is no aneur ysm, high-grade stenosis, or focal vessel cut off seen throughout the intracranial circulation. Jugular veins: Patent bilaterally. Dural sinuses: Patent. Lung apices: There is mild emphysematous change. Upper lobe lung parenchyma is otherwise clear as manda ged. Soft tissues: The visualized pharyngeal soft tissues are normal in appearance noting angiographic pha se technique. The oropharyngeal airway appears widely patent. The salivary and thyroid glands are nor mal in appearance. No cervical lymphadenopathy is seen. Skeletal structures: The calvarium appears intact. The cervical spine is maintained noting multilevel spondylosis. Orbits: The bony orbits are intact. Orbital contents are normal as visualized. Sinuses and mastoids: There is trace mucosal thickening within the left maxillary antrum, the ethmoid sinuses, and the frontal sinuses. The mastoid air cells are well pneumatized. IMPRESSION: 1. There is no evidence of hemorrhage, mass effect, or acute territorial ischemia by CT criteria noti ng angiographic phase technique. 2. Unremarkable CT angiogram of the brain. 3. 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 4. Otherwise unremarkable CT angiogram of the neck. ACT 112: Negative or not required by law. Electronically signed by: Jose L Garcia M.D. 10/11/2023 7:08 PM
--- NOTE | 2023-10-11 19:17 | CT Scan Report ---
CT ANGIOGRAM OF THE CHEST CLINICAL HISTORY: Dyspnea. Headache and dizziness. COMPARISON STUDY: Chest x-ray dated 10/11/2023. TECHNIQUE: Following the IV administration of 119 cc of Optiray 320, CT angiogram of the chest was pe rformed from the upper abdomen to the thoracic inlet utilizing the pulmonary embolus protocol. Images are reviewed in the axial, sagittal, and coronal planes. 3-D MIPS images are created and assessed. I V contrast was administered without complication. A dose lowering technique was utilized adhering to the principles of ALARA. FINDINGS: Thyroid: Imaged portions of the thyroid gland are normal in size and attenuation. Thoracic aorta: There is mild atherosclerotic calcification of the thoracic aorta, which is normal in caliber and demonstrates standard 3-vessel arch anatomy. No dissection is seen. Pulmonary vasculature: The pulmonary trunk is normal in caliber. There are no filling defects identif ied in main, lobar, or segmental pulmonary branches to suggest pulmonary embolus. Heart: The heart is top normal in size and without pericardial effusion. The coronary arteries are de nsely calcified. Lungs and pleural spaces: There is mild emphysematous change. No airspace consolidation or pleural ef fusion is identified. Foci of air trapping are seen throughout both lungs, and there are foci of scar /atelectasis throughout both lungs. Diffuse peribronchial thickening suggests bronchitis/reactive air way disease. The trachea and central airways are clear. A 3 mm pleural-based nodule at the left lung base is seen on image #56. Mediastinum: There is no mediastinal lymphadenopathy. Linda: Clear. Axillae: There is no axillary lymphadenopathy. Upper abdomen: There is severe hepatic steatosis. Fatty sparing is noted adjacent to the gallbladder fossa. A 1.0 cm cyst is noted in the left lobe of the liver. A small hiatal hernia is identified. Skeletal structures: No lytic or blastic bony lesions are seen. Degenerative change is noted in the s houlders and spine. IMPRESSION: 1. There is no evidence of pulmonary embolus in the main, lobar, or segmental pulmonary arteries. 2. There is no airspace consolidation or pleural effusion. 3. Diffuse peribronchial thickening suggests bronchitis/reactive airway disease. Correlate clinically . 4. Foci of air trapping are seen throughout both lungs. 5. Coronary artery atherosclerosis. 6. Hepatic steatosis. 7. Additional findings as above. ACT 112: Negative or not required by law. Electronically signed by: Jose L Garcia M.D. 10/11/2023 7:15 PM
[2023-10-11 19:25] LABS: Basophils # (auto) 0.03 K/uL (0.00-0.20); Basophils % (auto) 0.3 %; Eosinophils # (auto) 0.02 K/uL (0.00-0.50); Eosinophils % (auto) 0.2 %; Immature Granulocytes # (auto) 0.18 K/uL (0.01-0.20); Lymphocytes # (auto) 0.28 K/uL (1.20-3.40); Lymphocytes % (auto) 3.1 %; Monocytes # (auto) 0.17 K/uL (0.11-0.59); Monocytes % (auto) 1.9 %; Neutrophils # (auto) 8.47 K/uL (1.40-6.50); Neutrophils % (auto) 92.5 %
[2023-10-11] MEDS ORDERED: ALBUT/IPRATROP 3MG/0.5MG NEB 3 ML VIAL NEB STA (19:28)
[2023-10-11] MEDS ORDERED: SODIUM CHLORIDE 0.9% 1,000 ML IV ONE (20:17)
--- NOTE | 2023-10-11 20:25 | History & Physical Report ---
Date of Service October 11, 2023 Assessment & Plan (1) NSTEMI (non-ST elevated myocardial infarction): Plan: Known h/o CAD with clinical symptoms classic for ACS as noted above. Known risk factors include family history, personal history of CAD with noncompliance with medications, and smoking. Will screen lipids and A1C in am. We need to control his pain...so will start nitro paste now with additional morphine 2mg IV. Will give APAP for a known headache (patient has not had any nitroglycerin yet today). Will start Lipitor 40mg now for plaque stabilization. Heparin drip ordered with rising troponin and ongoing pain. Metoprolol started to slow down the myocardial demand. Consult cardiology. IF WE CANNOT GET HIS PAIN TO ZERO, WILL NEED TO NOTIFY OVERNIGHT PROVIDER AND CARDIOLOGY IMMEDIATELY. (2) CAD (coronary artery disease): Plan: Per history, plan as noted above. (3) Ischemic cardiomyopathy: Plan: Listed on [facility] records as of 2017. Not on medications. Not in heart failure. Echo ordered. (4) Narcissistic personality disorder: Plan: noted per history. (5) Hypercholesterolemia: Plan: per records, lipid panel in am. (6) Smoker: Plan: smoking cessation advised. Nicotine contraindicated currently given vasoconstrictive properties. Full Code Heparin drip Dispo- to PCU I spent a total of 75 minutes coordinating, documenting, and providing care for this patient excluding time spent in the performance of separately billed services DO [facility] History of Present Illness Chief Complaint: SOB/dyspnea Primary Care Provider: MYRA Mijares 62 yo inmate presents with acute chest discomfort and shortness of breath earlier today. He has a history of CAD with stent placement in 2017 at an unknown hospital, however, after 6 months of medications he reports they stopped them. He currently takes nothing including no baby aspirin. He has a strong family history of early heart disease with his father dying at 53 yrs old from an CO. He is a smoker and leads a very sedentary lifestyle as an inmate over the past couple of months. Today, he reports sitting at his table, and suddenly felt cold, started hyperventilating. Chest pain in substernal region described as acute sharp, nonradiating. Constant. Worse with exertion, worse with sitting up. He reports feeling well yesterday. CT chest with some evidence of reactive airways disease, but patient denies cough, sore throat. Episodes of diaphoresis today and palpitations. He is still feeling SOB with a dull ache in the center of his chest and reports a headache. He feels drained and cold. Denies any blood per rectum or other bleeding issues. Allergies Allergy/AdvReac Type Severity Reaction Status Date / Time No Known Allergies Allergy Verified 10/11/23 18:53 Home Medications Medication Instructions Recorded Confirmed Type No Known Home Medications 10/11/23 10/11/23 History Past Med/Surg History Medical History (Updated 10/11/23 @ 22:09 by Janis Bains DO) Ischemic cardiomyopathy BPH (benign prostatic hyperplasia) HTN (hypertension) Hypercholesterolemia Delusional disorder Narcissistic personality disorder Smoker CAD (coronary artery disease) stent in 2017 Surgical History (Updated 10/11/23 @ 21:38 by Janis Bains DO) History of thumb surgery History of tonsillectomy History of ankle surgery Family History (Updated 10/11/23 @ 21:36 by Janis Bains DO) Mother Coronary heart disease Father , at 53 yo from [place] Coronary heart disease Social History Smoking Status: Current every day smoker Tobacco Type: Cigarettes and E-cigarettes / Vaping Feels Safe at Home: Yes Physical Exam Physical Exam: CONSTITUTIONAL: WNWD, vitals as above, generally well-appearing, NAD EYES: normal conjunctivae, no scleral icterus ENT: external ear and nose normal, MMM NECK: trachea midline RESPIRATORY: clear to auscultation bilaterally, no crackles, rales or wheezes, normal respiratory effort CARDIOVASCULAR: tachy rate and rhythm, S1 and 2 heard without murmurs, gallops or rubs, no JVD, no peripheral edema CHEST: inspection of chest was normal GASTROINTESTINAL: soft, nontender, ND, no guarding MUSCULOSKELETAL: strength 5/5 throughout, head is normocephalic and atraumatic SKIN: warm and dry NEUROLOGIC: CN 2-12 grossly intact, no sensory deficit, normal cognition, normal speech, no tremor PSYCHIATRIC: alert cooperative and oriented to person, place and time. Euthymic mood, makes good eye contact, language grossly intact, recent and remote memory grossly intact. Results & Data Results & Data Vital Signs (Past 12 Hours) Vital Signs Temp Pulse Resp BP Pulse Ox O2 Del Method O2 Flow Rate 10/11/23 20:10 95 H 5 L 106/70 100 Room Air 10/11/23 20:00 92 H 26 H 95 Room Air 10/11/23 19:50 95 H 19 94 10/11/23 19:40 98 H 22 94 10/11/23 19:30 98 H 19 94 10/11/23 19:20 98 H 22 92 10/11/23 19:10 99 H 23 91 10/11/23 19:00 100 H 19 96 10/11/23 18:56 108/58 L 10/11/23 18:56 6 L 10/11/23 18:30 25 H 95 Room Air 10/11/23 18:20 102 H 21 96 10/11/23 18:19 96 H 25 H 96 10/11/23 18:00 98 H 21 94 Room Air 10/11/23 17:50 97 H 26 H 93 10/11/23 17:40 100 H 21 94 10/11/23 17:30 104 H 22 96 10/11/23 17:23 110 H 10/11/23 17:20 105 H 23 93 10/11/23 17:15 94 Room Air 10/11/23 17:15 99 Room Air 4 10/11/23 17:10 110 H 26 H 94 10/11/23 17:09 105 H 20 94 Room Air 10/11/23 17:02 36.6 C 105 H 20 112/75 94 Room Air Laboratory Results Short CBC 10/11/23 Range/Units 17:15 WBC 9.15 (4.8-10.8) K/ul Hgb 15.0 (14.0-18.0) g/dl Hct 44.3 (42.0-52.0) % Plt Count 189 (130-400) K/uL BMP 10/11/23 17:15 Sodium 135 L Potassium 4.0 Chloride 104 Carbon Dioxide 21 BUN 21 Creatinine 1.28 Glucose 136 H Calcium 8.6 Liver Function 10/11/23 Range/Units 17:15 Total Bilirubin 1.5 H (0.2-1.0) mg/dl AST 40 H (13-39) U/L ALT 41 (7-52) U/L Alkaline Phosphatase 55 (34-104) U/L Albumin 3.9 (3.4-5.0) gm/dl Diagnostic Findings Chest X-Ray 10/11/23 17:35 SINGLE VIEW CHEST CLINICAL HISTORY: Atypical chest pain. FINDINGS: 2 AP, portable, upright chest radiographs are obtained. No prior studies are available for comparison at the time of dictation. The examination is degraded by portable technique and apical lordotic positioning. The cardiomediastinal silhouette is unremarkable. There is mild bibasilar atelectasis. The lungs and pleural spaces are otherwise clear. No pneumothorax is seen. The bony thorax is grossly intact. IMPRESSION: No active disease in the chest. ACT 112: Negative or not required by law. Electronically signed by: Jose L Garcia M.D. 10/11/2023 6:[address] 10/11/23 17:35 CT SCAN OF THE BRAIN WITHOUT IV CONTRAST CLINICAL HISTORY: Headache and dizziness. COMPARISON STUDY: No priors. TECHNIQUE: Unenhanced axial CT scan of the brain is performed from the vertex to the skull base. A dose lowering technique was utilized adhering to the principles of ALARA. CT DOSE: 625.8 mGy.cm FINDINGS: Brain parenchyma: There is age-related involutional change noting minimal microangiopathic disease. There is no hemorrhage, mass effect, or evidence of acute territorial ischemia by CT criteria. Chacon-white matter differentiation is preserved. No extra-axial fluid collection is seen. Ventricles, sulci, cisterns: Prominent secondary to involutional change. Intracranial vasculature: There is atherosclerotic calcification of the cavernous carotid arteries. Calvarium: Unremarkable. Sinuses and mastoids: The visualized paranasal sinuses are clear. The mastoid air cells are well pneumatized. Orbits: The bony orbits are grossly intact. IMPRESSION: There is no hemorrhage, mass effect, or evidence of acute territorial ischemia by CT criteria. ACT 112: Negative or not required by law. Electronically signed by: Jose L Garcia M.D. 10/11/2023 6:14 PM Chest CTA 10/11/23 18:20 CT ANGIOGRAM OF THE CHEST CLINICAL HISTORY: Dyspnea. Headache and dizziness. COMPARISON STUDY: Chest x-ray dated 10/11/2023. TECHNIQUE: Following the IV administration of 119 cc of Optiray 320, CT angiogram of the chest was performed from the upper abdomen to the thoracic inlet utilizing the pulmonary embolus protocol. Images are reviewed in the axial, sagittal, and coronal planes. 3-D MIPS images are created and assessed. IV contrast was administered without complication. A dose lowering technique was utilized adhering to the principles of ALARA. FINDINGS: Thyroid: Imaged portions of the thyroid gland are normal in size and attenuation. Thoracic aorta: There is mild atherosclerotic calcification of the thoracic aorta, which is normal in caliber and demonstrates standard 3-vessel arch anatomy. No dissection is seen. Pulmonary vasculature: The pulmonary trunk is normal in caliber. There are no filling defects identified in main, lobar, or segmental pulmonary branches to suggest pulmonary embolus. Heart: The heart is top normal in size and without pericardial effusion. The coronary arteries are densely calcified. Lungs and pleural spaces: There is mild emphysematous change. No airspace consolidation or pleural effusion is identified. Foci of air trapping are seen throughout both lungs, and there are foci of scar/atelectasis throughout both lungs. Diffuse peribronchial thickening suggests bronchitis/reactive airway disease. The trachea and central airways are clear. A 3 mm pleural-based nodule at the left lung base is seen on image #56. Mediastinum: There is no mediastinal lymphadenopathy. Linda: Clear. Axillae: There is no axillary lymphadenopathy. Upper abdomen: There is severe hepatic steatosis. Fatty sparing is noted adjacent to the gallbladder fossa. A 1.0 cm cyst is noted in the left lobe of the liver. A small hiatal hernia is identified. Skeletal structures: No lytic or blastic bony lesions are seen. Degenerative change is noted in the shoulders and spine. IMPRESSION: 1. There is no evidence of pulmonary embolus in the main, lobar, or segmental pulmonary arteries. 2. There is no airspace consolidation or pleural effusion. 3. Diffuse peribronchial thickening suggests bronchitis/reactive airway disease. Correlate clinically. 4. Foci of air trapping are seen throughout both lungs. 5. Coronary artery atherosclerosis. 6. Hepatic steatosis. 7. Additional findings as above. ACT 112: Negative or not required by law. Electronically signed by: Jose L Garcia M.D. 10/11/2023 7:15 PM Head CTA 10/11/23 18:20 CT ANGIOGRAM OF THE BRAIN; CT ANGIOGRAM OF THE NECK CLINICAL HISTORY: Headache and dizziness. COMPARISON STUDY: Unenhanced CT of the brain performed the same day 10/11/2023. TECHNIQUE: Following the IV administration of 119 of Optiray 320, CT angiogram of the head and neck was performed from the aortic arch to the vertex. Images are reviewed in the axial, sagittal, and coronal planes. 3-D MIPS images are created and assessed. IV contrast was administered without complication. All measurements were calculated based on NASCET criteria. A dose lowering technique was utilized adhering to the principles of ALARA. CT DOSE: 2610.85 mGy.cm FINDINGS: Brain parenchyma: There is no evidence of hemorrhage, mass effect, or acute territorial ischemia by CT criteria noting angiographic phase technique. There is no evidence of enhancing mass lesion on the angiogram phase images. The ventricles, sulci, and cisterns are normal in configuration. Chacon-white matter differentiation is preserved. No extra-axial fluid collection is seen. Thoracic aorta: There is atherosclerotic calcification of the thoracic aorta. Visualized portions of the thoracic aorta are normal in caliber. The aortic arch demonstrates standard 3-vessel anatomy. Right carotid arterial system: The right common carotid artery is widely patent, as are the right internal and external carotid arteries. Calcified plaque is noted in the carotid bulb. Left carotid arterial system: The left common carotid artery is widely patent, as are the left internal and external carotid arteries. Calcified plaque is noted in the carotid bulb. Vertebral arteries: There is moderate to high-grade stenosis at the origin of both vertebral arteries. The vertebral arteries are otherwise patent bilaterally and codominant. Subclavian arteries: Widely patent bilaterally. Intracranial vasculature: There is atherosclerotic calcification of the carotid bulbs. The internal carotid arteries are patent at the skull base, as are the anterior and middle cerebral arteries bilaterally. The vertebrobasilar system and posterior cerebral arteries are widely patent. The vertebral arteries are codominant. There is origin of the left posterior cerebral artery. There is no aneurysm, high-grade stenosis, or focal vessel cut off seen throughout the intracranial circulation. Jugular veins: Patent bilaterally. Dural sinuses: Patent. Lung apices: There is mild emphysematous change. Upper lobe lung parenchyma is otherwise clear as imaged. Soft tissues: The visualized pharyngeal soft tissues are normal in appearance noting angiographic phase technique. The oropharyngeal airway appears widely patent. The salivary and thyroid glands are normal in appearance. No cervical lymphadenopathy is seen. Skeletal structures: The calvarium appears intact. The cervical spine is m aintained noting multilevel spondylosis. Orbits: The bony orbits are intact. Orbital contents are normal as visualized. Sinuses and mastoids: There is trace mucosal thickening within the left maxi llary antrum, the ethmoid sinuses, and the frontal sinuses. The mastoid air cells are well pneumatized. IMPRESSION: 1. There is no evidence of hemorrhage, mass effect, or acute territorial ische corina by CT criteria noting angiographic phase technique. 2. Unremarkable CT angiogram of the brain. 3. 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 4. Otherwise unremarkable CT angiogram of the neck. ACT 112: Negative or not required by law. Electronically signed by: Jose L Garcia M.D. 10/11/2023 7:08 PM Neck CTA 10/11/23 18:20 CT ANGIOGRAM OF THE BRAIN; CT ANGIOGRAM OF THE NECK CLINICAL HISTORY: Headache and dizziness. COMPARISON STUDY: Unenhanced CT of the brain performed the same day 10/11/2023. TECHNIQUE: Following the IV administration of 119 of Optiray 320, CT angiogram of the head and neck was performed from the aortic arch to the vertex. Images are reviewed in the axial, sagittal, and coronal planes. 3-D MIPS images are created and assessed. IV contrast was administered without complication. All measurements were calculated based on NASCET criteria. A dose lowering technique was utilized adhering to the principles of ALARA. CT DOSE: 2610.85 mGy.cm FINDINGS: Brain parenchyma: There is no evidence of hemorrhage, mass effect, or acute territorial ischemia by CT criteria noting angiographic phase technique. There is no evidence of enhancing mass lesion on the angiogram phase images. The ventricles, sulci, and cisterns are normal in configuration. Chacon-white matter differentiation is preserved. No extra-axial fluid collection is seen. Thoracic aorta: There is atherosclerotic calcification of the thoracic aorta. Visualized portions of the thoracic aorta are normal in caliber. The aortic arch demonstrates standard 3-vessel anatomy. Right carotid arterial system: The right common carotid artery is widely patent, as are the right internal and external carotid arteries. Calcified plaque is noted in the carotid bulb. Left carotid arterial system: The left common carotid artery is widely patent, as are the left internal and external carotid arteries. Calcified plaque is noted in the carotid bulb. Vertebral arteries: There is moderate to high-grade stenosis at the origin of both vertebral arteries. The vertebral arteries are otherwise patent bilaterally and codominant. Subclavian arteries: Widely patent bilaterally. Intracranial vasculature: There is atherosclerotic calcification of the carotid bulbs. The internal carotid arteries are patent at the skull base, as are the anterior and middle cerebral arteries bilaterally. The vertebrobasilar system and posterior cerebral arteries are widely patent. The vertebral arteries are codominant. There is origin of the left posterior cerebral artery. There is no aneurysm, high-grade stenosis, or focal vessel cut off seen throughout the intracranial circulation. Jugular veins: Patent bilaterally. Dural sinuses: Patent. Lung apices: There is mild emphysematous change. Upper lobe lung parenchyma is otherwise clear as imaged. Soft tissues: The visualized pharyngeal soft tissues are normal in appearance noting angiographic phase technique. The oropharyngeal airway appears widely patent. The salivary and thyroid glands are normal in appearance. No cervical lymphadenopathy is seen. Skeletal structures: The calvarium appears intact. The cervical spine is maintained noting multilevel spondylosis. Orbits: The bony orbits are intact. Orbital contents are normal as visualized. Sinuses and mastoids: There is trace mucosal thickening within the left maxillary antrum, the ethmoid sinuses, and the frontal sinuses. The mastoid air cells are well pneumatized. IMPRESSION: 1. There is no evidence of hemorrhage, mass effect, or acute territorial ischemia by CT criteria noting angiographic phase technique. 2. Unremarkable CT angiogram of the brain. 3. 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 4. Otherwise unremarkable CT angiogram of the neck. ACT 112: Negative or not required by law. Electronically signed by: Jose L Garcia M.D. 10/11/2023 7:08 PM Medications Administered Current Inpatient Medications Sodium Chloride (Nss) 1,000 mls @ 999 mls/hr IV .Q1H1M ONE Stop: 10/11/23 21:17 Code Status & VTE Plan VTE Prophylaxis Plan VTE Prophylaxis will be ordered: Yes
[2023-10-11] MEDS ORDERED: ACETAMINOPHEN 500 MG TAB PO ONE (21:52)
[2023-10-11] MEDS ORDERED: MoRPHine SULFATE 2 MG/ML CARP IV STA (21:52)
[2023-10-11] MEDS ORDERED: Heparin IV Adult Wt-Based Standard w/ INITIAL Bolus Protocol IV SCH (22:00)
[2023-10-11] MEDS ORDERED: HEPARIN SODIUM/DEXTROSE 25,000 UNITS/500 ML BAG IV SCH (22:15)
[2023-10-11] MEDS: MAGNESIUM SULFATE / D5W 1 GM/100 ML BAG IV SCH (22:18)
[2023-10-11] MEDS: METOPROLOL TARTRATE 25 MG TAB PO SCH (22:18)
[2023-10-11] MEDS: NITROGLYCERIN 2% OINTMENT 30GM TUBE EXT SCH (22:18)
[2023-10-11] MEDS ORDERED: HEPARIN 25000 UNIT/500 ML D5W IV ONE (22:20)
[2023-10-11] MEDS ORDERED: HEPARIN SOD (PORCINE) 1000 UNIT/ML ONE (22:20)
[2023-10-11] MEDS ORDERED: HEPARIN SOD (PORCINE) 1000 UNIT/ML IV ONE (22:30)
[2023-10-11] MEDS: ATORVASTATIN 40 MG TAB PO SCH (23:00)
[2023-10-12 00:32] LABS: Amphetamines+Metham, Urine Neg (Neg); Barbiturates, Urine Neg (Neg); Benzodiazepine, Urine Neg (Neg); Cocaine, Urine Neg (Neg); MDMA (Ecstacy), Urine Neg (Neg); Marijuana, Urine Neg (Neg); Methadone, Urine Neg (Neg); Opiate, Urine Neg (Neg); Phencyclidine, Urine Neg (Neg)
[2023-10-12] MEDS ORDERED: NITROGLYCERIN SL 0.4 MG/TAB TAB SL STA (00:32)
[2023-10-12] MEDS ORDERED: NITROGLYCERIN SL 0.4 MG/TAB TAB SL PRN (00:32)
[2023-10-12] MEDS ORDERED: MoRPHine SULFATE 4 MG/ML 1 ML CARP\\VIAL IV PRN (00:33)
[2023-10-12] MEDS ORDERED: LACTATED RINGER'S 1,000 ML IV ONE ×2 (00:34→07:09)
[2023-10-12] MEDS: MAGNESIUM SULFATE / D5W 1 GM/100 ML BAG IV SCH ×2 (00:38→02:29)
[2023-10-12] MEDS ORDERED: NITROGLYCERIN SL 0.4 MG/TAB TAB ONE (00:41)
[2023-10-12] MEDS: oxyCODONE HCL IR 5 MG TAB (IMMEDIATE RELEASE) PO PRN ×2 (01:06→17:47)
[2023-10-12 01:12] LABS: Appearance Urine Clear (Clear); Bacteria Urine Automated 1+ (Negative); Bilirubin Urine Negative (Negative); Blood Urine Trace (Negative); Color Urine Yellow; Glucose Urine UA Negative (Negative); Ketones Urine 1+ (Negative); Leukocyte Esterase Urine 2+ (Negative); Nitrite Urine Positive (Negative); Protein Urine Negative (Negative); RBC Urine Automated 0-4 /hpf (0-4); Specific Gravity Urine > 1.045 (1.000-1.030); Urobilinogen Urine Negative (Negative); WBC Urine Automated >30 /hpf (0-5); pH Urine 5.5 (4.5-7.5)
[2023-10-12] MEDS ORDERED: MoRPHine SULFATE 4 MG/ML 1 ML CARP\\VIAL IV STA (02:05)
[2023-10-12] MEDS ORDERED: HYDROmorphone INJ 0.5 MG/0.5 ML SYR IV STA (02:06)
[2023-10-12] MEDS ORDERED: HYDROmorphone INJ 0.5 MG/0.5 ML SYR IV PRN (02:07)
--- NOTE | 2023-10-12 02:17 | Communication Note ---
Date of Service: October 12, 2023 Made aware by RN of persistent lactic acidosis. Patient with increased urinary frequency symptoms. UA, WBC esterase, nitrite positive AP Severe sepsis SIRS plus lactic acid elevation secondary to complicated UTI Follow lactic acid response to IVF Follow urine CS, continue cefepime after first dose given at the ER
[2023-10-12] MEDS: CEFEPIME 2,000 MG in SYRINGE 0 ML IV SCH ×3 (02:49→17:40)
[2023-10-12] MEDS: NITROGLYCERIN 2% OINTMENT 30GM TUBE EXT SCH ×3 (04:41→16:18)
[2023-10-12 04:49] LABS: Hematocrit (blood only) 38.7 % (42.0-52.0); Hemoglobin 12.8 g/dl (14.0-18.0); Mean Corpuscular Hgb Conc 33.1 g/dL (32.0-36.0); Mean Corpuscular Volume 87.6 fL (80.0-100.0); Mean Platelet Volume 10.4 fL (9.4-12.4); Platelet Count 144 K/uL (130-400); RDW Coefficient of Variation 13.8 % (11.5-14.5); RDW Standard Deviation 44.2 fL (36.4-46.3); Red Blood Count 4.42 M/uL (4.70-6.10); White Blood Count 6.64 K/ul (4.8-10.8)
[2023-10-12 05:01] LABS: Albumin Globulin Ratio 1.4 (0.9-2); Albumin Level 3.4 gm/dl (3.4-5.0); BUN Creatinine Ratio 14.4 (10-20); Bilirubin,Total 1.4 mg/dl (0.2-1.0); Calcium 7.7 mg/dl (8.6-10.3); Chol HDL Ratio 2.8 (0-5); Creatinine Clr Calc Pharmacy 88.2 ml/min; Est GFR (African American) 83.2 ml/min; Est GFR (Non-African American) 71.8 ml/min; Globulin 2.5 gm/dl (2.5-4.0); Magnesium 2.4 mg/dl (1.7-2.4); Potassium 3.9 mmol/L (3.5-5.1); Total Protein 5.9 gm/dl (6.0-8.3)
[2023-10-12 05:34] LABS: ANTI-Xa, UFH(UnfractionatedHep 0.79 IU/ml (0.3-0.7)
[2023-10-12 07:39] LABS: Estimated Average Glucose 126 mg/dl
[2023-10-12] MEDS: METOPROLOL TARTRATE 25 MG TAB PO SCH ×2 (08:27→20:07)
[2023-10-12] MEDS ORDERED: SODIUM CHLORIDE 0.9% 1,000 ML IV SCH ×2 (08:45→15:00)
[2023-10-12] MEDS: ASPIRIN 81 MG ECTAB PO SCH (08:46)
[2023-10-12 08:58] LABS: Troponin I High Sensitivity 147.8 pg/ml (0-20)
[2023-10-12] MEDS ORDERED: INFLUENZA VIRUS QUADRIVALENT VACCINE (IIV4) 0.5 ML SYR IM ONE (09:00)
--- NOTE | 2023-10-12 09:50 | Cardiology Consultation ---
Date of Consultation October 12, 2023 Assessment & Plan (1) NSTEMI (non-ST elevated myocardial infarction): -Patient describes chest discomfort and shortness of breath. Although there does appear to be a pleuritic component of his chest discomfort CT angiogram of the chest was negative for pulmonary embolism, and is echocardiogram does not reveal any significant pericardial effusion. EKG tracings performed on presentation and again this morning at 2200 hrs. revealed sinus rhythm with age-indeterminate septal infarction pattern in lead V2 no acute ST changes. The patient's high-sensitivity troponin was mildly elevated on presentation at 60 PG per mL and trended up to 293 at just after midnight last night before trending down to 148 PG per mL this morning. Echocardiogram was performed this morning and reviewed independently with findings of an age-indeterminate small apical wall motion abnormality with normal LVEF. As noted in the history and physical, while incarcerated, the patient underwent cardiac catheterization in 2017 and apparent stent to an unknown coronary vessel. I reviewed the images of his CT of the chest, and it is insufficient to comment with regards to determining if a stent is present or absent. The patient has not been on chronic medications to include aspirin. Patient's symptoms suggest either a primary cardiac issue, or supply demand ischemia in the setting of an infection including bronchitis. Medication therapy: Continue aspirin, metoprolol, unfractionated heparin infusion, and atorvastatin. Keep n.p.o. pending possible invasive coronary angiography. (2) UTI (urinary tract infection): -Patient with abnormal urinalysis and elevated lactate level. Agree with cefepime for coverage of possible UTI or occult pneumonia. History of Present Illness Attending Physician: Mitesh Clemente MD History of Present Illness Erik Pedersen is 62-year-old male inmate seen in cardiology consultation per the request of Dr. Bains for the evaluation of chest discomfort and elevated troponin. The patient describes a past history of coronary heart disease with coronary stent, unknown vessel, performed at another institution. Patient with onset of chest discomfort and shortness of breath yesterday 10/11/2023. At present, he is lying supine, and he states that when he takes a deep breath in his di scomfort in his reproduced. A CT angiogram was performed on presentation with no evidence of pulmonary embolus in the main, lobar, or segmental pulmonary arteries. Diffuse peribronchial thickening suggestive of bronchitis/reactive airways disease noted. Coronary atherosclerosis noted as well as hepatosteatosis. A 3 mm pleural-based nodule was noted at the left lung base. Allergies Allergy/AdvReac Type Severity Reaction Status Date / Time No Known Allergies Allergy Verified 10/11/23 18:53 Home Medications Medication Instructions Recorded Confirmed Type No Known Home Medications 10/11/23 10/11/23 History Patient History Medical History Ischemic cardiomyopathy BPH (benign prostatic hyperplasia) HTN (hypertension) Hypercholesterolemia Delusional disorder Narcissistic personality disorder Smoker CAD (coronary artery disease) stent in 2017 Surgical History History of thumb surgery History of tonsillectomy History of ankle surgery Family History Mother Coronary heart disease Father , at 53 yo from [place] Coronary heart disease Social History Smoking Status: Current every day smoker Tobacco Type: E-cigarettes / Vaping Cigarettes Per Day: 2; Do You Dip or Chew Tobacco: No; Tobacco Cessation Education Requested by Patient: No Hx Substance Use: No Preferred Language: Sudanese Communication Ability: Effective [employer] Required: No Beliefs That Will Affect Care: None Current Living Situation: Other Current Living Situation Comment: correctional facility Other Information That Helps Us Care for You: No Feels Safe at Home: Yes Safety Concerns: Feels Safe At This Time Assistive Devices: Denture - Upper and Glasses Review of Systems Review of Systems: All systems reviewed & are unremarkable except as noted in HPI & below Physical Exam Constitutional: + ill appearing; no acute distress Respiratory: normal respiratory effort, lungs clear to auscultation Cardiovascular: RRR, no murmur, no edema Gastrointestinal (Abdomen): normal bowel sounds, soft, nontender, no hepatosplenomegaly Neurologic: PERRL, EOMI, accommodation nl, no face palsy, no dysarthria Results & Data Vital Signs (Past 12 Hours) Vital Signs Temp Pulse Pulse Resp BP BP Pulse Ox 10/12/23 08:23 37.4 C 87 19 96/61 L 96 10/12/23 04:48 99 H 10/12/23 02:51 36.8 C 80 16 102/62 95 10/12/23 02:31 96/60 L 10/12/23 01:42 100/64 10/12/23 01:09 104/63 10/12/23 00:57 97/61 L 10/12/23 00:45 100/68 10/11/23 23:06 36.6 C 18 93 10/11/23 23:04 36.6 C 18 105/74 93 10/11/23 22:30 103 H 20 10/11/23 22:30 104/66 10/11/23 22:20 97 H 22 10/11/23 22:18 95 H 21 10/11/23 22:18 96/63 L 10/11/23 22:10 97 H 23 10/11/23 22:01 97/64 L 10/11/23 22:01 98 H 19 10/11/23 22:00 105 H 15 10/11/23 21:50 109 H 19 10/11/23 21:44 110/67 10/11/23 21:44 106 H 15 O2 Del Method O2 Flow Rate 10/12/23 08:23 Nasal Cannula 2.5 10/12/23 04:48 10/12/23 02:51 Nasal Cannula 2.5 10/12/23 02:31 10/12/23 01:42 10/12/23 01:09 10/12/23 00:57 10/12/23 00:45 10/11/23 23:06 Room Air 10/11/23 23:04 Room Air 10/11/23 22:30 10/11/23 22:30 10/11/23 22:20 10/11/23 22:18 10/11/23 22:18 10/11/23 22:10 10/11/23 22:01 10/11/23 22:01 10/11/23 22:00 10/11/23 21:50 10/11/23 21:44 10/11/23 21:44 Laboratory Results Cardiac Enzymes 10/11/23 10/11/23 10/12/23 Range/Units 17:15 19:35 00:59 AST 40 H (13-39) U/L Troponin I High Sens 60.7 H* 282.9 H* D 293.9 H* (0-20) pg/ml 10/12/23 10/12/23 Range/Units 04:30 08:20 AST 45 H (13-39) U/L Troponin I High Sens 147.8 H* D (0-20) pg/ml Coagulation 10/11/23 Range/Units 17:15 PT 11.6 (9.0-12.0) Seconds APTT 27 (21-31) Seconds Lipids 10/12/23 Range/Units 04:30 Triglycerides 56 (0-150) mg/dl Cholesterol 88 (0-200) mg/dl HDL Cholesterol 32 mg/dl Cholesterol/HDL Ratio 2.8 (0-5) LDL cholesterol 45 CBC 10/11/23 10/12/23 Range/Units 17:15 04:30 WBC 9.15 6.64 (4.8-10.8) K/ul RBC 5.16 4.42 L (4.70-6.10) M/uL Hgb 15.0 12.8 L (14.0-18.0) g/dl Hct 44.3 38.7 L (42.0-52.0) % Plt Count 189 144 (130-400) K/uL Neut # (Auto) 8.47 H (1.40-6.50) K/uL Lymph # (Auto) 0.28 L (1.20-3.40) K/uL Long # (Auto) 0.17 (0.11-0.59) K/uL Eos # (Auto) 0.02 (0.00-0.50) K/uL Baso # (Auto) 0.03 (0.00-0.20) K/uL Comprehensive Metabolic Panel 10/11/23 10/12/23 Range/Units 17:15 04:30 Sodium 135 L 136 (136-145) mmol/L Potassium 4.0 3.9 (3.5-5.1) mmol/L Chloride 104 107 (98-107) mmol/L Carbon Dioxide 21 24 (21-32) mmol/L BUN 21 16 (6-23) mg/dl Creatinine 1.28 1.11 (0.6-1.4) mg/dl Glucose 136 H 129 H (70-99(Fasting)) mg/dl Calcium 8.6 7.7 L (8.6-10.3) mg/dl AST 40 H 45 H (13-39) U/L ALT 41 39 (7-52) U/L Alkaline Phosphatase 55 45 (34-104) U/L Total Protein 7.0 5.9 L (6.0-8.3) gm/dl Albumin 3.9 3.4 (3.4-5.0) gm/dl Intake and Output 10/11/23 10/12/23 10/12/23 22:59 06:59 14:59 Intake Total 2000 / 3510.533 1510.533 / 3510.533 Output Total 200 / 800 600 / 800 Balance 1800 / 2710.533 910.533 / 2710.533 Intake: IV 1999 / 3510.533 1510.533 / 3510.533 Heparin Sodium/Dextrose 25,000 218.033 / 218.033 units In 500 ml @ 1,450 UNITS/ HR 29 mls/hr IV .[id number] [facility] Rx #:[id number] Lactated Ringer's 1,000 ml @ 1000 / 1000 200 mls/hr IV .Q5H ONE Rx#: [id number] Magnesium Sulfate / D5w 1 gm In 292.5 / 292.5 100 ml @ 50 mls/hr IV Q2H [facility] Rx#:[id number] Sodium Chloride 0.9% 1,000 ml @ 1000 / 1000 999 mls/hr IV .Q1H1M ONE Rx#: [id number] Sodium Chloride 0.9% 500 ml @ 1000 / 1000 999 mls/hr IV .Q31M ONE Rx#: [id number] Output: Urine 200 / 800 600 / 800 Other: Other Intake Source NPO Weight 114.5 kg 111 kg Weight Measurement Method [facility] Diagnostic Findings Cardiac Enzymes 10/11/23 10/11/23 10/12/23 Range/Units 17:15 19:35 00:59 AST 40 H (13-39) U/L Troponin I High Sens 60.7 H* 282.9 H* D 293.9 H* (0-20) pg/ml 10/12/23 10/12/23 Range/Units 04:30 08:20 AST 45 H (13-39) U/L Troponin I High Sens 147.8 H* D (0-20) pg/ml Coagulation 10/11/23 Range/Units 17:15 PT 11.6 (9.0-12.0) Seconds APTT 27 (21-31) Seconds Lipids 10/12/23 Range/Units 04:30 Triglycerides 56 (0-150) mg/dl Cholesterol 88 (0-200) mg/dl HDL Cholesterol 32 mg/dl Cholesterol/HDL Ratio 2.8 (0-5) CBC 10/11/23 10/12/23 Range/Units 17:15 04:30 WBC 9.15 6.64 (4.8-10.8) K/ul RBC 5.16 4.42 L (4.70-6.10) M/uL Hgb 15.0 12.8 L (14.0-18.0) g/dl Hct 44.3 38.7 L (42.0-52.0) % Plt Count 189 144 (130-400) K/uL Neut # (Auto) 8.47 H (1.40-6.50) K/uL Lymph # (Auto) 0.28 L (1.20-3.40) K/uL Long # (Auto) 0.17 (0.11-0.59) K/uL Eos # (Auto) 0.02 (0.00-0.50) K/uL Baso # (Auto) 0.03 (0.00-0.20) K/uL Comprehensive Metabolic Panel 10/11/23 10/12/23 Range/Units 17:15 04:30 Sodium 135 L 136 (136-145) mmol/L Potassium 4.0 3.9 (3.5-5.1) mmol/L Chloride 104 107 (98-107) mmol/L Carbon Dioxide 21 24 (21-32) mmol/L BUN 21 16 (6-23) mg/dl Creatinine 1.28 1.11 (0.6-1.4) mg/dl Glucose 136 H 129 H (70-99(Fasting)) mg/dl Calcium 8.6 7.7 L (8.6-10.3) mg/dl AST 40 H 45 H (13-39) U/L ALT 41 39 (7-52) U/L Alkaline Phosphatase 55 45 (34-104) U/L Total Protein 7.0 5.9 L (6.0-8.3) gm/dl Albumin 3.9 3.4 (3.4-5.0) gm/dl Intake and Output 10/11/23 10/12/23 10/12/23 22:59 06:59 14:59 Intake Total 1999.533 1510.533 / 3510.533 Output Total 200 / 800 600 / 800 Balance 1800 / 2710.533 910.533 / 2710.533 Intake: IV 19990.533 1510.533 / 3510.533 Heparin Sodium/Dextrose 25,000 218.033 / 218.033 units In 500 ml @ 1,450 UNITS/ HR 29 mls/hr IV .[id number] [facility] Rx #:[id number] Lactated Ringer's 1,000 ml @ 1000 / 1000 200 mls/hr IV .Q5H ONE Rx#: [id number] Magnesium Sulfate / D5w 1 gm In 292.5 / 292.5 100 ml @ 50 mls/hr IV Q2H [facility] Rx#:[id number] Sodium Chloride 0.9% 1,000 ml @ 1000 / 1000 999 mls/hr IV .Q1H1M ONE Rx#: [id number] Sodium Chloride 0.9% 500 ml @ 1000 / 1000 999 mls/hr IV .Q31M ONE Rx#: [id number] Output: Urine 200 / 800 600 / 800 Other: Other Intake Source NPO Weight 114.5 kg 111 kg Weight Measurement Method [facility]
[2023-10-12 10:36] LABS: C Reactive Protein 10.5 mg/dl (0-0.5)
[2023-10-12 12:05] LABS: ANTI-Xa, UFH(UnfractionatedHep 0.56 IU/ml (0.3-0.7)
[2023-10-12] MEDS ORDERED: HEPARIN (PORCINE) 1000 UNIT/ML 10 ML (CATH LAB USE ONLY) ONE (13:42)
[2023-10-12] MEDS ORDERED: niCARdipine HCL INJ 2.5 MG/ML 10 ML AMP ONE (13:42)
[2023-10-12] MEDS ORDERED: fentaNYL citrate PF 100 MCG/2 ML VIAL ONE (13:42)
[2023-10-12] MEDS ORDERED: MIDAZOLAM HCL 1 MG/ML 2ML VIAL ONE ×2 (13:42→14:33)
[2023-10-12] MEDS ORDERED: NITROGLYCERIN/D5W 100MCG/ML 20ML SYR ONE (13:43)
[2023-10-12] MEDS ORDERED: OPTIRAY 350 ONE (13:54)
--- NOTE | 2023-10-12 13:57 | Pre Anesthesia Assessment ---
Date of Service October 12, 2023 Pre Sedation Assessment Vital Signs Temp Pulse Pulse Resp BP BP Pulse Ox 10/12/23 11:59 98.1 F 72 18 99/63 L 97 10/12/23 08:23 99.3 F 87 19 96/61 L 96 10/12/23 04:48 99 H 10/12/23 02:51 98.2 F 80 16 102/62 95 10/12/23 02:31 96/60 L 10/12/23 01:42 100/64 10/12/23 01:09 104/63 10/12/23 00:57 97/61 L 10/12/23 00:45 100/68 10/11/23 23:06 97.9 F 18 93 10/11/23 23:04 97.9 F 18 105/74 93 10/11/23 22:30 103 H 20 10/11/23 22:30 104/66 10/11/23 22:20 97 H 22 10/11/23 22:18 95 H 21 10/11/23 22:18 96/63 L 10/11/23 22:10 97 H 23 10/11/23 22:01 97/64 L 10/11/23 22:01 98 H 19 10/11/23 22:00 105 H 15 10/11/23 21:50 109 H 19 10/11/23 21:44 110/67 10/11/23 21:44 106 H 15 10/11/23 21:32 15 10/11/23 20:55 10/11/23 20:50 110 H 19 97 10/11/23 20:40 111 H 20 96 10/11/23 20:30 110/73 10/11/23 20:30 112 H 20 96 10/11/23 20:20 110 H 14 98 10/11/23 20:16 106/70 10/11/23 20:16 107 H 15 95 10/11/23 20:10 95 H 5 L 106/70 100 10/11/23 20:00 92 H 26 H 95 10/11/23 19:50 95 H 19 94 10/11/23 19:40 98 H 22 94 10/11/23 19:30 98 H 19 94 10/11/23 19:20 98 H 22 92 10/11/23 19:10 99 H 23 91 10/11/23 19:00 100 H 19 96 10/11/23 18:56 108/58 L 10/11/23 18:56 6 L 10/11/23 18:30 25 H 95 10/11/23 18:20 102 H 21 96 10/11/23 18:19 96 H 25 H 96 10/11/23 18:00 98 H 21 94 10/11/23 17:50 97 H 26 H 93 10/11/23 17:40 100 H 21 94 10/11/23 17:30 104 H 22 96 10/11/23 17:23 110 H 10/11/23 17:20 105 H 23 93 10/11/23 17:15 94 10/11/23 17:15 99 10/11/23 17:10 110 H 26 H 94 10/11/23 17:09 105 H 20 94 10/11/23 17:02 97.9 F 105 H 20 112/75 94 Pulse Ox O2 Del Method O2 Del Method O2 Flow Rate 10/12/23 11:59 Nasal Cannula 2.5 10/12/23 08:23 Nasal Cannula 2.5 10/12/23 04:48 10/12/23 02:51 Nasal Cannula 2.5 10/12/23 02:31 10/12/23 01:42 10/12/23 01:09 10/12/23 00:57 10/12/23 00:45 10/11/23 23:06 Room Air 10/11/23 23:04 Room Air 10/11/23 22:30 10/11/23 22:30 10/11/23 22:20 10/11/23 22:18 10/11/23 22:18 10/11/23 22:10 10/11/23 22:01 10/11/23 22:01 10/11/23 22:00 10/11/23 21:50 10/11/23 21:44 10/11/23 21:44 10/11/23 21:32 10/11/23 20:55 98 Room Air 10/11/23 20:50 10/11/23 20:40 10/11/23 20:30 10/11/23 20:30 10/11/23 20:20 10/11/23 20:16 10/11/23 20:16 10/11/23 20:10 Room Air 10/11/23 20:00 Room Air 10/11/23 19:50 10/11/23 19:40 10/11/23 19:30 10/11/23 19:20 10/11/23 19:10 10/11/23 19:00 10/11/23 18:56 10/11/23 18:56 10/11/23 18:30 Room Air 10/11/23 18:20 10/11/23 18:19 10/11/23 18:00 Room Air 10/11/23 17:50 10/11/23 17:40 10/11/23 17:30 10/11/23 17:23 10/11/23 17:20 10/11/23 17:15 Room Air 10/11/23 17:15 Room Air 4 10/11/23 17:10 10/11/23 17:09 Room Air 10/11/23 17:02 Room Air Cardiovascular + regular rate Respiratory + respiratory effort normal Pre-Sedation Airway Assessment Smoking Status: Current every day smoker Hx Sleep Apnea: No Hx Difficult Intubation: No Short, Thick Neck: No Thyromental Distance: > or= 3.5 Finger Breadths Oral Cavity: + WNL Mallampati Class: III ASA: ASA3 NPO Status Date of Last Intake of Fluids: 10/12/23 Time of Last Intake of Fluids: 07:00 Last Oral Intake of Fluids Comment: sips Date of Last Intake of Solid Food: 10/11/23 Time of Last Intake of Solid Foods: 18:00 Procedure Planning Contraindications for Sedation: none Current Medications Reviewed: Yes Notes The planned sedation has been discussed with the patient. Informed Consent was obtained. I have identified the patient, determined the appropriateness of sedation and have assessed the patient immediately prior to the procedure. All medicine(s) and interventions are by my order.
[2023-10-12] MEDS ORDERED: ADENOSINE IV SOLN 3 MG/ML 20 ML VIAL IV ONE (14:18)
--- NOTE | 2023-10-12 14:48 | Hospitalist Progress Note ---
Date of Service October 12, 2023 Assessment & Plan (1) NSTEMI (non-ST elevated myocardial infarction): Plan: NSTEMI Pleuritic chest pain DD: Bronchitis --Chest CTA:There is no evidence of pulmonary embolus in the main, lobar, or segmental pulmonary arteries. There is no airspace consolidation or pleural effusion. Diffuse peribronchial thickening suggests bronchitis/reactive airway disease. Correlate clinically. Foci of air trapping are seen throughout both lungs. Coronary artery atherosclerosis. Hepatic steatosis. -- Elevated troponin --ECHO: Mild concentric LVH. Subtle, small apical wall motion abnormality. EF 55 to 60%. Aortic valve sclerosis mild, without significant arctic valve stenosis. Left ventricle diastolic function is normal. -- HbA1c 6.0 --Lipid panel normal -- Procalcitonin pending Continue aspirin, statin, metoprolol Appreciate cardiology input Continue IV heparin Further management based on cath results Abnormal urinalysis Suspected UTI Empirically started on cefepime Follow-up cultures (2) CAD (coronary artery disease): Plan: Currently not on any maintenance medications per patient (3) Ischemic cardiomyopathy: Plan: Listed on [facility] records as of 2018. Not on medications. Echo as above (4) Narcissistic personality disorder: Plan: As per records. (5) Hypercholesterolemia: Plan: Not on meds (6) Smoker: Plan: smoking cessation advised DVT Px: Heparin SQ Code Status Full Code Admission and Anticipated Discharge Date Admission Date: October 11, 2023 Subjective Patient is seen and examined at bedside States having chest pain with deep inspiration Reports minimal cough Denies any dyspnea at rest Also denies any nausea, vomiting, abdominal pain Alf guards at bedside No other complaints Plan for cardiac catheterization today Review of Systems Review of Systems: All systems reviewed & are unremarkable except as noted in Subjective Physical Exam Physical Exam: Physical Exam: Vitals signs as noted above General Appearance:Obese, no apparent distress Head: normocephalic, Atraumatic Eyes: normal inspection, EOMI Neck: supple, Trachea midline Respiratory/Chest: Normal breath sounds, CTA, No accessory muscle use Cardiovascular: S1, S2, No murmur Abdomen/GI:Soft, Non tender, Bowel sounds present Extremities/Musculoskeletal:normal inspection, no edema Neurologic/Psych:AAOX3, grossly no focal neurological deficits Skin: normal color, warm Results & Data Results & Data Vital Signs (Past 12 Hours) Vital Signs Temp Pulse Pulse Resp BP Pulse Ox O2 Del Method 10/12/23 11:59 36.7 C 72 18 99/63 L 97 Nasal Cannula 10/12/23 08:23 37.4 C 87 19 96/61 L 96 Nasal Cannula 10/12/23 04:48 99 H 10/12/23 02:51 36.8 C 80 16 102/62 95 Nasal Cannula O2 Flow Rate 10/12/23 11:59 2.5 10/12/23 08:23 2.5 10/12/23 04:48 10/12/23 02:51 2.5 Laboratory Results Short CBC 10/11/23 10/12/23 Range/Units 17:15 04:30 WBC 9.15 6.64 (4.8-10.8) K/ul Hgb 15.0 12.8 L (14.0-18.0) g/dl Hct 44.3 38.7 L (42.0-52.0) % Plt Count 189 144 (130-400) K/uL BMP 10/11/23 10/12/23 17:15 04:30 Sodium 135 L 136 Potassium 4.0 3.9 Chloride 104 107 Carbon Dioxide 21 24 BUN 21 16 Creatinine 1.28 1.11 Glucose 136 H 129 H Calcium 8.6 7.7 L Liver Function 10/11/23 10/12/23 Range/Units 17:15 04:30 Total Bilirubin 1.5 H 1.4 H (0.2-1.0) mg/dl AST 40 H 45 H (13-39) U/L ALT 41 39 (7-52) U/L Alkaline Phosphatase 55 45 (34-104) U/L Albumin 3.9 3.4 (3.4-5.0) gm/dl Urine 10/11/23 Range/Units 22:40 Urine Color Yellow Urine Appearance Clear (Clear) Urine pH 5.5 (4.5-7.5) Ur Specific [place] > 1.045 H (1.000-1.030) Urine Protein Negative (Negative) Urine Glucose (UA) Negative (Negative)
--- NOTE | 2023-10-12 14:51 | Post Anesthesia Assessment ---
Date of Service October 12, 2023 Post Sedation Assessment Vital Signs Temp Pulse Pulse Resp BP BP Pulse Ox 10/12/23 11:59 98.1 F 72 18 99/63 L 97 10/12/23 08:23 99.3 F 87 19 96/61 L 96 10/12/23 04:48 99 H 10/12/23 02:51 98.2 F 80 16 102/62 95 10/12/23 02:31 96/60 L 10/12/23 01:42 100/64 10/12/23 01:09 104/63 10/12/23 00:57 97/61 L 10/12/23 00:45 100/68 10/11/23 23:06 97.9 F 18 93 10/11/23 23:04 97.9 F 18 105/74 93 10/11/23 22:30 103 H 20 10/11/23 22:30 104/66 10/11/23 22:20 97 H 22 10/11/23 22:18 95 H 21 10/11/23 22:18 96/63 L 10/11/23 22:10 97 H 23 10/11/23 22:01 97/64 L 10/11/23 22:01 98 H 19 10/11/23 22:00 105 H 15 10/11/23 21:50 109 H 19 10/11/23 21:44 110/67 10/11/23 21:44 106 H 15 10/11/23 21:32 15 10/11/23 20:55 10/11/23 20:50 110 H 19 97 10/11/23 20:40 111 H 20 96 10/11/23 20:30 110/73 10/11/23 20:30 112 H 20 96 10/11/23 20:20 110 H 14 98 10/11/23 20:16 106/70 10/11/23 20:16 107 H 15 95 10/11/23 20:10 95 H 5 L 106/70 100 10/11/23 20:00 92 H 26 H 95 10/11/23 19:50 95 H 19 94 10/11/23 19:40 98 H 22 94 10/11/23 19:30 98 H 19 94 10/11/23 19:20 98 H 22 92 10/11/23 19:10 99 H 23 91 10/11/23 19:00 100 H 19 96 10/11/23 18:56 108/58 L 10/11/23 18:56 6 L 10/11/23 18:30 25 H 95 10/11/23 18:20 102 H 21 96 10/11/23 18:19 96 H 25 H 96 10/11/23 18:00 98 H 21 94 10/11/23 17:50 97 H 26 H 93 10/11/23 17:40 100 H 21 94 10/11/23 17:30 104 H 22 96 10/11/23 17:23 110 H 10/11/23 17:20 105 H 23 93 10/11/23 17:15 94 10/11/23 17:15 99 10/11/23 17:10 110 H 26 H 94 10/11/23 17:09 105 H 20 94 10/11/23 17:02 97.9 F 105 H 20 112/75 94 Pulse Ox O2 Del Method O2 Del Method O2 Flow Rate 10/12/23 11:59 Nasal Cannula 2.5 10/12/23 08:23 Nasal Cannula 2.5 10/12/23 04:48 10/12/23 02:51 Nasal Cannula 2.5 10/12/23 02:31 10/12/23 01:42 10/12/23 01:09 10/12/23 00:57 10/12/23 00:45 10/11/23 23:06 Room Air 10/11/23 23:04 Room Air 10/11/23 22:30 10/11/23 22:30 10/11/23 22:20 10/11/23 22:18 10/11/23 22:18 10/11/23 22:10 10/11/23 22:01 10/11/23 22:01 10/11/23 22:00 10/11/23 21:50 10/11/23 21:44 10/11/23 21:44 10/11/23 21:32 10/11/23 20:55 98 Room Air 10/11/23 20:50 10/11/23 20:40 10/11/23 20:30 10/11/23 20:30 10/11/23 20:20 10/11/23 20:16 10/11/23 20:16 10/11/23 20:10 Room Air 10/11/23 20:00 Room Air 10/11/23 19:50 10/11/23 19:40 10/11/23 19:30 10/11/23 19:20 10/11/23 19:10 10/11/23 19:00 10/11/23 18:56 10/11/23 18:56 10/11/23 18:30 Room Air 10/11/23 18:20 10/11/23 18:19 10/11/23 18:00 Room Air 10/11/23 17:50 10/11/23 17:40 10/11/23 17:30 10/11/23 17:23 10/11/23 17:20 10/11/23 17:15 Room Air 10/11/23 17:15 Room Air 4 10/11/23 17:10 10/11/23 17:09 Room Air 10/11/23 17:02 Room Air Recovery Score Activity: Moves 4 extremities Respiration: Deep Breath/Cough Circulation: +/-20% PreAnes Value Consciousness: Fully Awake Oxygen Saturation: O2 needed for >90% Discharge Sedation Level of Care: Fast Track Phase II Post Sedation Plan On clinical assessment, the patient appears to have tolerated the sedation without complications. Patient is recovering as anticipated. Patient will continue to be monitored by nursing and may be discharged when sedation discharge criteria are met per below protocol. Upon Completions of procedure up to 15 minutes continue every 5 minute vital signs and the P.A.R. score; then discharge to a Phase I or Fast Track to Phase II per the following guidelines: * Discharge Patient to appropriate Phase II area if PAR is 8 or greater or return to pre- procedure baseline. The post - procedure orders will be as directed. * If PAR score is less than 8 or not return to pre-procedure baseline then patient will follow Phase I monitoring till PAR is reached for Phase II. The Phase I may be done in procedure room or may call to secure a Phase I area. * If naloxone or flumazenil are used for reversal, hold in Phase I for continued monitoring from when last reversal dose was given for a minimum of 60 minutes or longer pending the nurse and/or physician discretion of patient condition before discharge to Phase II. Please call the Sedation Physician to re-evaluate and complete post-note for discharge to Phase II area. Do NOT discharge from procedure sedation or Phase 1 until post- sedation evaluation note is complete by procedure /sedation MD Sedation Discharge Instructions to be given to the patient at discharge to home.
[2023-10-12] MEDS ORDERED: CLOPIDOGREL BISULFATE 300 MG TAB ONE (14:56)
--- NOTE | 2023-10-12 18:14 | Cardiac Catheterization ---
[facility] Data: Food Assembler Cardiac Status Clinical evaluation leading to the procedure CAD Presenation: Non STEMI Anginal Classification: CCS IV Diagnostic Physicians Name: Lavon West MD Closure Device Recommendations: PCI without planned CABG Cardiac Cath Procedure Full Procedure Date October 12, 2023 Pre-Procedure Diagnosis Pre-Procedure Diagnosis: Non STEMI AUC Score AUC Score: 8 Post-Procedure Diagnosis Post-Procedure Diagnosis: Severe CAD, Successful PCI and Normal Intracardiac Pressures Procedure(s) Performed Procedure(s) Performed: Coronary Angiography, Left Heart Cath, Drug Eluting Stent, IVUS and Fractional Flow [employer] Lavon West MD Brand Executive(s) Showers Estimated Blood Loss Estimated Blood Loss: 10 Medication(s) Medication(s): Clopidogrel, Fentanyl, Heparin, Lidocaine 1%, Nicardipine, Nitroglycerin and Versed Summary of Findings Indication: NSTEMI Access: 6 Fr right radial artery Catheters: [place], EBU 3.5 guide Findings: LM -normal caliber, no significant disease LAD -focal 70% proximal, hazy stenosis just before prior stent. Proximal to mid stent widely patent. Distal vessel with 40 to 50% stenosis and extends to apex Circumflex -dominant, large caliber, midsegment luminal irregularities. RCA -small caliber, no significant disease. LVEDP - FFR/IVUS of LAD procedure: -Left main cannulated with EBU 3.5 guide -Barron FFR wire navigated across proximal stenosis/prior stent -IFR 0.87 -Barron IVUS catheter placed across stenosis/prior stent. Pullback revealed widely patent stent with focal 70% proximal stenosis with eccentric calcification. Minimal left main disease. Decision to proceed with PCI -- PCI -- Antithrombotic therapy: Heparin, clopidogrel Procedure: Pre-procedure flow IFEOMA 3 Barron FFR wire left in place Proximal LAD stented with 2.75 x 8 mm Xience drug-eluting stent overlapping proximal aspect of prior stent Stent post-dilated with 3.0 noncompliant balloon IC vasodilators administered for spasm Repeat IVUS showed well-expanded, well apposed stent with no apparent edge complications Repeat IFR 0.94 Post procedure IFEOMA 3 flow, stent well expanded with minimal residual stenosis and no apparent cardiac complications. Arterial Closure: TR band Summary: 1. Severe single vessel coronary artery disease -70% proximal LAD just before prior stent (IFR 0.87, 70% by IVUS) 2. Normal intracardiac filling pressure 3. Successful PCI of proximal LAD with single JEANETTE (2.75 x 8 mm Xience; postdilated with 3.0 NC) overlapping proximal aspect of prior stent Recommendations: To PCU for continued monitoring Loaded with clopidogrel 600 mg in Food As[employer]er Continue dual-antiplatelet therapy for at least 1 year Continue statin, and ASCVD risk factor modification Consult cardiac Rehab Hemodynamics Rest Ao:: 95/60/79 Final Ao: 93/56/69 LV: 89/17 Recommendations Recommendations: PCI without planned CABG Radiation Exposure (mGy) 2327 Contrast (mls) 75 Anesthesia Moderate 7906-8751 Procedural Complication(s) None Disposition Food As[employer]er Holding/Recovery I attest to the content of the Intraoperative Record and any orders documented therein. Any exceptions are noted below. [facility] Card Cath Procedure Codes Cardiac Catheterization Procedure 1: Cardiovascular Cath Procedures: 42374 Coronaries and LHC (+/-LV) Procedure 2: Cardiovascular Cath Procedures: 79382 (Doppler) Pressure Wire Therapeutic Services & Ancillary Procedure 1: Cardiovascular Tx and Anc Procedures: 72878 IV Ultrasound (Coronary or Graft) Moderate Sedation Procedure 1: Sedation/Anesthesia: 70641 Mod Sedation by the same physician;Init15 Min Child Age 5 & Up Procedure 2: Sedation/Anesthesia: 76006 Mod Sedation by the same physician; Ea [id number] Minutes Stenting Procedure 1: Cardiovascular Stent Procedures: 76078 Perc transcatheter placement of intracoronary stent(s), with ang PG Care Time/CCT Total # of Minutes Spent Total Time Spent with Patient: Total time spent is greater than 50% in coordination of care (as documented) at patient's floor/unit and/or counseling patient:
[2023-10-12] MEDS: ATORVASTATIN 40 MG TAB PO SCH (20:07)
[2023-10-12] MEDS ORDERED: MELATONIN 3 MG TAB PO PRN (23:28)
[2023-10-13] MEDS: oxyCODONE HCL IR 5 MG TAB (IMMEDIATE RELEASE) PO PRN (00:05)
[2023-10-13] MEDS: CEFEPIME 2,000 MG in SYRINGE 0 ML IV SCH ×2 (02:16→10:41)
[2023-10-13 04:49] LABS: Hematocrit (blood only) 38.3 % (42.0-52.0); Hemoglobin 12.7 g/dl (14.0-18.0); Mean Corpuscular Hgb Conc 33.2 g/dL (32.0-36.0); Mean Corpuscular Volume 87.4 fL (80.0-100.0); Mean Platelet Volume 10.8 fL (9.4-12.4); Platelet Count 141 K/uL (130-400); RDW Standard Deviation 44.8 fL (36.4-46.3); Red Blood Count 4.38 M/uL (4.70-6.10); White Blood Count 5.05 K/ul (4.8-10.8)
[2023-10-13 05:05] LABS: BUN Creatinine Ratio 12.9 (10-20); Calcium 7.5 mg/dl (8.6-10.3); Creatinine Clr Calc Pharmacy 84.5 ml/min; Est GFR (African American) 78.9 ml/min; Est GFR (Non-African American) 68.1 ml/min; Magnesium 2.1 mg/dl (1.7-2.4); Potassium 3.9 mmol/L (3.5-5.1)
--- NOTE | 2023-10-13 06:03 | Electrocardiogram Report ---
Test Reason : Blood Pressure : / mmHG Vent. Rate : 111 BPM Atrial Rate : 111 BPM P-R Int : 150 ms QRS Dur : 086 ms QT Int : 322 ms P-R-T Axes : 068 031 072 degrees QTc Int : 437 ms Sinus tachycardia Otherwise normal ECG No previous ECGs available Confirmed by Arun Sidhu ([id number]) on 10/13/2023 6:03:18 AM Referred By: Maryana RENTERIA Confirmed By:Arun Sidhu
--- NOTE | 2023-10-13 06:08 | Electrocardiogram Report ---
Test Reason : Blood Pressure : / mmHG Vent. Rate : 098 BPM Atrial Rate : 098 BPM P-R Int : 154 ms QRS Dur : 094 ms QT Int : 344 ms P-R-T Axes : 068 032 073 degrees QTc Int : 439 ms Normal sinus rhythm Cannot rule out Septal infarct , age undetermined Abnormal ECG When compared with ECG of 11-OCT-2023 17:12, No significant change was found Confirmed by Arun Sidhu ([id number]) on 10/13/2023 6:07:54 AM Referred By: Maryana RENTERIA Confirmed By:Arun Sidhu
[2023-10-13] MEDS: METOPROLOL TARTRATE 25 MG TAB PO SCH (08:35)
[2023-10-13] MEDS: ASPIRIN 81 MG ECTAB PO SCH (08:35)
[2023-10-13] MEDS ORDERED: CLOPIDOGREL BISULFATE 75 MG TAB PO SCH (09:00)
[2023-10-13] MEDS ORDERED: DOXYCYCLINE HYCLATE 100 MG CAP PO SCH (09:30)
--- NOTE | 2023-10-13 11:03 | Cardiology Progress Note ---
Date of Service October 13, 2023 Assessment & Plan (1) NSTEMI (non-ST elevated myocardial infarction): Plan: -Diagnostic coronary angiography performed 10/12/2023 revealed a focal 70% proximal hazy stenosis in the proximal LAD prior to the previously placed LAD stent. The distal vessel was noted to have a 40 to 50% stenosis and extends to the apex. The left main was without significant disease. The circumflex was a large dominant vessel with luminal irregularities in the midsegment. Right coronary is a small caliber vessel without significant disease. Patient underwent successful PCI, drug-eluting stent of the proximal LAD. Post PCI intravascular ultrasound assessment revealed well-expanded well apposed stent. Patient to continue aspirin 81 mg daily (lifelong therapy). He is to be on clopidogrel 75 mg daily for a year at which time ongoing therapy can be reassessed. Continue with Toprol tartrate 25 mg twice daily, atorvastatin 40 mg daily. Repeat EKG performed post PCI yesterday was without repolarization changes. Will plan for repeat EKG today. If EKG is stable, patient would be considered a reasonable candidate for transfer back to the [facility] institution from a cardiac perspective. With regards to concerns of infection, urine culture is negative thus far the patient has no urinary symptoms. Question if he has underlying bronchitis. Currently he is on doxycycline. Admission and Anticipated Discharge Date Admission Date: October 11, 2023 Subjective Patient seen in cardiology follow-up. Denies chest discomfort at the time of my assessment. Describes generalized tiredness. Physical Exam Constitutional: + ill appearing; no acute distress Respiratory: normal respiratory effort, lungs clear to auscultation Cardiovascular: RRR, no murmur, no edema Gastrointestinal (Abdomen): normal bowel sounds, soft, nontender, no hepatosplenomegaly Neurologic: PERRL, EOMI, accommodation nl, no face palsy, no dysarthria Results & Data Vital Signs (Past 12 Hours) Vital Signs Temp Pulse Pulse Resp BP Pulse Ox O2 Del Method 10/13/23 07:30 79 10/13/23 07:28 36.8 C 78 16 118/79 92 Room Air 10/13/23 02:00 37.0 C 78 20 135/75 93 Room Air 10/13/23 01:16 81 Laboratory Results CBC 10/13/23 Range/Units 03:48 WBC 5.05 (4.8-10.8) K/ul RBC 4.38 L (4.70-6.10) M/uL Hgb 12.7 L (14.0-18.0) g/dl Hct 38.3 L (42.0-52.0) % Plt Count 141 (130-400) K/uL Comprehensive Metabolic Panel 10/13/23 Range/Units 03:48 Sodium 133 L (136-145) mmol/L Potassium 3.9 (3.5-5.1) mmol/L Chloride 104 (98-107) mmol/L Carbon Dioxide 22 (21-32) mmol/L BUN 15 (6-23) mg/dl Creatinine 1.16 (0.6-1.4) mg/dl Glucose 141 H (70-99(Fasting)) mg/dl Calcium 7.5 L (8.6-10.3) mg/dl Intake and Output 10/12/23 10/13/23 10/13/23 22:59 06:59 14:59 Intake Total 2231.967 / 2831.967 600 / 2831.967 Output Total 875 / 1325 450 / 1325 Balance 1356.967 / 1506.967 150 / 1506.967 Intake: IV 2031.967 / 2031.967 Heparin Sodium/Dextrose 25,000 31.967 / 31.967 units In 500 ml @ 1,450 UNITS/ HR 29 mls/hr IV .[id number] [facility] Rx #:[id number] Sodium Chloride 0.9% 1,000 ml @ 2000 / 2000 100 mls/hr IV .Q10H [facility] Rx#: [id number] Oral 200 / 800 600 / 800 Output: Urine 875 / 1325 450 / 1325 # Bowel Movements 0 / 0 Other: Other Intake Source Patiet has taken sips. Weight 116.1 kg Weight Measurement Method Built in [facility]
--- NOTE | 2023-10-13 13:12 | Hospitalist Progress Note ---
Date of Service October 13, 2023 Assessment & Plan (1) NSTEMI (non-ST elevated myocardial infarction): Plan: NSTEMI --Chest CTA:There is no evidence of pulmonary embolus in the main, lobar, or segmental pulmonary arteries. There is no airspace consolidation or pleural effusion. Diffuse peribronchial thickening suggests bronchitis/reactive airway disease. Correlate clinically. Foci of air trapping are seen throughout both lungs. Coronary artery atherosclerosis. Hepatic steatosis. -- Elevated troponin --ECHO: Mild concentric LVH. Subtle, small apical wall motion abnormality. EF 55 to 60%. Aortic valve sclerosis mild, without significant arctic valve stenosis. Left ventricle diastolic function is normal. -- HbA1c 6.0 --S/P Cardiac Cath:Severe single vessel coronary artery disease. 70% proximal LAD just before prior stent (IFR 0.87, 70% by IVUS). Normal intracardiac filling pressure. Successful PCI of proximal LAD with single JEANETTE (2.75 x 8 mm Xience; postdilated with 3.0 NC) overlapping proximal aspect of prior stent --Lipid panel normal Continue aspirin, statin, metoprolol Appreciate cardiology input Continue IV heparin Further management based on cath results Abnormal urinalysis Suspected UTI Denies any dysuria, hematuria, increased urinary frequency Empirically started on cefepime Urine culture showed only pinpoint growth Acute bronchitis--POA CTA showed no signs of consolidation Will empirically treat with doxycycline, cefepime Saturating well on room air (2) CAD (coronary artery disease): Plan: Currently not on any maintenance medications per patient (3) Ischemic cardiomyopathy: Plan: Listed on [facility] records as of 2018. Not on medications. Echo as above (4) Narcissistic personality disorder: Plan: As per records. (5) Hypercholesterolemia: Plan: Not on meds (6) Smoker: Plan: smoking cessation advised DVT Px: Heparin SQ Code Status Full Code Disposition [facility] Admission and Anticipated Discharge Date Admission Date: October 11, 2023 Review of Systems Review of Systems: All systems reviewed & are unremarkable except as noted in Subjective Physical Exam Physical Exam: Physical Exam: Vitals signs as noted above General Appearance:Obese, no apparent distress Head: normocephalic, Atraumatic Eyes: normal inspection, EOMI Neck: supple, Trachea midline Respiratory/Chest: Normal breath sounds, CTA, No accessory muscle use Cardiovascular: S1, S2, No murmur Abdomen/GI:Soft, Non tender, Bowel sounds present Extremities/Musculoskeletal:normal inspection, no edema Neurologic/Psych:AAOX3, grossly no focal neurological deficits Skin: normal color, warm Results & Data Results & Data Vital Signs (Past 12 Hours) Vital Signs Temp Pulse Pulse Resp BP Pulse Ox O2 Del Method 10/13/23 11:13 36.6 C 73 18 126/85 94 Room Air 10/13/23 07:30 79 10/13/23 07:28 36.8 C 78 16 118/79 92 Room Air 10/13/23 02:00 37.0 C 78 20 135/75 93 Room Air 10/13/23 01:16 81 Laboratory Results Short CBC 10/13/23 Range/Units 03:48 WBC 5.05 (4.8-10.8) K/ul Hgb 12.7 L (14.0-18.0) g/dl Hct 38.3 L (42.0-52.0) % Plt Count 141 (130-400) K/uL BMP 10/13/23 03:48 Sodium 133 L Potassium 3.9 Chloride 104 Carbon Dioxide 22 BUN 15 Creatinine 1.16 Glucose 141 H Calcium 7.5 L
--- NOTE | 2023-10-13 13:30 | Discharge Summary ---
Date of Service October 13, 2023 Admission HPI Per Admitting Provider 62 yo inmate presents with acute chest discomfort and shortness of breath earlier today. He has a history of CAD with stent placement in 2017 at an unknown hospital, however, after 6 months of medications he reports they stopped them. He currently takes nothing including no baby aspirin. He has a strong family history of early heart disease with his father dying at 53 yrs old from an IN. He is a smoker and leads a very sedentary lifestyle as an inmate over the past couple of months. Today, he reports sitting at his table, and suddenly felt cold, started hyperventilating. Chest pain in substernal region described as acute sharp, nonradiating. Constant. Worse with exertion, worse with sitting up. He reports feeling well yesterday. CT chest with some evidence of reactive airways disease, but patient denies cough, sore throat. Episodes of diaphoresis today and palpitations. He is still feeling SOB with a dull ache in the center of his chest and reports a headache. He feels drained and cold. Denies any blood per rectum or other bleeding issues. Admission Exam Per Admitting Provider CONSTITUTIONAL: [facility]NWD, vitals as above, generally well-appearing, NAD EYES: normal conjunctivae, no scleral icterus ENT: external ear and nose normal, MMM NECK: trachea midline RESPIRATORY: clear to auscultation bilaterally, no crackles, rales or wheezes, normal respiratory effort CARDIOVASCULAR: tachy rate and rhythm, S1 and 2 heard without murmurs, gallops or rubs, no JVD, no peripheral edema CHEST: inspection of chest was normal GASTROINTESTINAL: soft, nontender, ND, no guarding MUSCULOSKELETAL: strength 5/5 throughout, head is normocephalic and atraumatic SKIN: warm and dry NEUROLOGIC: CN 2-12 grossly intact, no sensory deficit, normal cognition, normal speech, no tremor PSYCHIATRIC: alert cooperative and oriented to person, place and time. Euthymic mood, makes good eye contact, language grossly intact, recent and remote memory grossly intact. Principal Diagnosis NSTEMI Acute bronchitis Prediabetes Discharge Data Allergies Allergy/AdvReac Type Severity Reaction Status Date / Time No Known Allergies Allergy Verified 10/11/23 18:53 Consultations 10/11/23 20:17 ED Decision to Admit Stat 10/11/23 20:22 Consult Cardiology Routine Procedures Performed Operation Date: 10/12/23 13:30 Actual Procedures p Cath, Left with Cors and Vent - Lavon West MD s Cineradiography w/Routine Exam - Lavon West MD p Drug Eluting Stent SGl Vessel - Lavon West MD s IVUS Coronary Single Vessel - Lavon West MD Laboratory Results WBC 5.05 K/ul (4.8-10.8) 10/13/23 03:48 RBC 4.38 M/uL (4.70-6.10) L 10/13/23 03:48 Hgb 12.7 g/dl (14.0-18.0) L 10/13/23 03:48 Hct 38.3 % (42.0-52.0) L 10/13/23 03:48 MCV 87.4 fL (80.0-100.0) 10/13/23 03:48 MCH 29.0 pg (25.0-34.0) 10/13/23 03:48 MCHC 33.2 g/dL (32.0-36.0) 10/13/23 03:48 RDW Std Deviation 44.8 fL (36.4-46.3) 10/13/23 03:48 RDW Coeff of Kaleb 14.0 % (11.5-14.5) 10/13/23 03:48 Plt Count 141 K/uL (130-400) 10/13/23 03:48 MPV 10.8 fL (9.4-12.4) 10/13/23 03:48 Immature Gran % (Auto) 2.0 % 10/11/23 17:15 Neut % (Auto) 92.5 % 10/11/23 17:15 Lymph % (Auto) 3.1 % 10/11/23 17:15 Guadalupe % (Auto) 1.9 % 10/11/23 17:15 Eos % (Auto) 0.2 % 10/11/23 17:15 Baso % (Auto) 0.3 % 10/11/23 17:15 Neut # (Auto) 8.47 K/uL (1.40-6.50) H 10/11/23 17:15 Lymph # (Auto) 0.28 K/uL (1.20-3.40) L 10/11/23 17:15 Guadalupe # (Auto) 0.17 K/uL (0.11-0.59) 10/11/23 17:15 Eos # (Auto) 0.02 K/uL (0.00-0.50) 10/11/23 17:15 Baso # (Auto) 0.03 K/uL (0.00-0.20) 10/11/23 17:15 Immature Gran # (Auto) 0.18 K/uL (0.01-0.20) 10/11/23 17:15 ESR 13 mm/hr (0-20) 10/12/23 04:30 PT 11.6 Seconds (9.0-12.0) 10/11/23 17:15 INR 1.1 (0.9-1.1) 10/11/23 17:15 APTT 27 Seconds (21-31) 10/11/23 17:15 PTT Ratio 1.0 10/11/23 17:15 Activ Coag Time Kaolin 228 SECONDS (94-140) H 10/12/23 14:37 D-Dimer 5310 ug/L FEU (0-500) H* 10/11/23 17:15 Heparin Anti-Xa, Unfract 0.56 IU/ml (0.3-0.7) 10/12/23 11:14 Sodium 133 mmol/L (136-145) L 10/13/23 03:48 Potassium 3.9 mmol/L (3.5-5.1) 10/13/23 03:48 Chloride 104 mmol/L (98-107) 10/13/23 03:48 Carbon Dioxide 22 mmol/L (21-32) 10/13/23 03:48 Anion Gap 7 (3-11) 10/13/23 03:48 BUN 15 mg/dl (6-23) 10/13/23 03:48 Creatinine 1.16 mg/dl (0.6-1.4) 10/13/23 03:48 Est Cr Clr Drug Dosing 84.5 ml/min 10/13/23 03:48 Est GFR ( Amer) 78.9 ml/min 10/13/23 03:48 Est GFR (Non-Af Amer) 68.1 ml/min 10/13/23 03:48 BUN/Creatinine Ratio 12.9 (10-20) 10/13/23 03:48 Glucose 141 mg/dl (70-99(Fasting)) H 10/13/23 03:48 Estimat Average Glucose 126 mg/dl 10/12/23 04:30 Hemoglobin A1c 6.0 % (4.5-5.6) H 10/12/23 04:30 Lactate 0.9 mmol/L (0.4-2.0) 10/12/23 08:20 Calcium 7.5 mg/dl (8.6-10.3) L 10/13/23 03:48 Magnesium 2.1 mg/dl (1.7-2.4) 10/13/23 03:48 Total Bilirubin 1.4 mg/dl (0.2-1.0) H 10/12/23 04:30 AST 45 U/L (13-39) H 10/12/23 04:30 ALT 39 U/L (7-52) 10/12/23 04:30 Alkaline Phosphatase 45 U/L (34-104) 10/12/23 04:30 Troponin I High Sens 147.8 pg/ml (0-20) H* D 10/12/23 08:20 C-Reactive Protein 10.50 mg/dl (0-0.5) H 10/12/23 08:20 Total Protein 5.9 gm/dl (6.0-8.3) L 10/12/23 04:30 Albumin 3.4 gm/dl (3.4-5.0) 10/12/23 04:30 Globulin 2.5 gm/dl (2.5-4.0) 10/12/23 04:30 Albumin/Globulin Ratio 1.4 (0.9-2) 10/12/23 04:30 Triglycerides 56 mg/dl (0-150) 10/12/23 04:30 Cholesterol 88 mg/dl (0-200) 10/12/23 04:30 LDL Cholesterol, Calc 45 mg/dl 10/12/23 04:30 VLDL Cholesterol, Calc 11 mg/dl (0-30) 10/12/23 04:30 HDL Cholesterol 32 mg/dl 10/12/23 04:30 Cholesterol/HDL Ratio 2.8 (0-5) 10/12/23 04:30 Lipase 18 U/L (11-82) 10/11/23 17:15 Procalcitonin 15.57 ng/ml (0-0.5) H 10/13/23 03:48 TSH 1.114 uIu/ml (0.300-4.500) 10/11/23 17:15 Urine Color Yellow 10/11/23 22:40 Urine Appearance Clear (Clear) 10/11/23 22:40 Urine pH 5.5 (4.5-7.5) 10/11/23 22:40 Ur Specific [place] > 1.045 (1.000-1.030) H 10/11/23 22:40 Urine Protein Negative (Negative) 10/11/23 22:40 Urine Glucose (UA) Negative (Negative) 10/11/23 22:40 Urine Ketones 1+ (Negative) H 10/11/23 22:40 Urine Blood Trace (Negative) H 10/11/23 22:40 Urine Nitrite Positive (Negative) A 10/11/23 22:40 Urine Bilirubin Negative (Negative) 10/11/23 22:40 Urine Urobilinogen Negative (Negative) 10/11/23 22:40 Ur Leukocyte Esterase 2+ (Negative) H 10/11/23 22:40 Urine WBC (Auto) >30 /hpf (0-5) H 10/11/23 22:40 Urine RBC (Auto) 0-4 /hpf (0-4) 10/11/23 22:40 U Hyaline Cast (Auto) 1-5 /lpf (0-5) 10/11/23 22:40 U Epithel Cells (Auto) 10-20 /lpf (0-5) H 10/11/23 22:40 Urine Bacteria (Auto) 1+ (Negative) H 10/11/23 22:40 Nasal Screen MRSA (PCR) Negative (Negative) 10/11/23 Unknown Urine Opiates Screen Neg (Neg) 10/11/23 22:40 Ur Methadone, Qual Neg (Neg) 10/11/23 22:40 Urine Barbiturates Neg (Neg) 10/11/23 22:40 Ur Phencyclidine (PCP) Neg (Neg) 10/11/23 22:40 U Amphetamin/Meth Scrn Neg (Neg) 10/11/23 22:40 MDMA (Ecstasy) Screen Neg (Neg) 10/11/23 22:40 U Benzodiazepines Scrn Neg (Neg) 10/11/23 22:40 Ur Cocaine Metabolite Neg (Neg) 10/11/23 22:40 U Marijuana (THC) Screen Neg (Neg) 10/11/23 22:40 Adenovirus (PCR) Not Detected (NotDetected) 10/11/23 18:02 B. pertussis DNA (PCR) Not Detected (NotDetected) 10/11/23 18:02 B.parapertussis DNA PCR Not Detected (NotDetected) 10/11/23 18:02 C. pneumoniae DNA (PCR) Not Detected (NotDetected) 10/11/23 18:02 Coronavirus OC43 (PCR) Not Detected (NotDetected) 10/11/23 18:02 Coronavirus HKU1 (PCR) Not Detected (NotDetected) 10/11/23 18:02 Coronavirus 229E (PCR) Not Detected (NotDetected) 10/11/23 18:02 SARS-CoV-2 (PCR) Not Detected (NotDetected) 10/11/23 18:02 Coronavirus NL63 (PCR) Not Detected (NotDetected) 10/11/23 18:02 Human Metapneumovir PCR Not Detected (NotDetected) 10/11/23 18:02 Influenza Type A (PCR) Not Detected (NotDetected) 10/11/23 18:02 Influenza Type B (PCR) Not Detected (NotDetected) 10/11/23 18:02 M. pneumoniae (PCR) Not Detected (NotDetected) 10/11/23 18:02 Parainfluenza 1 (PCR) Not Detected (NotDetected) 10/11/23 18:02 Parainfluenza 2 (PCR) Not Detected (NotDetected) 10/11/23 18:02 Parainfluenza 3 (PCR) Not Detected (NotDetected) 10/11/23 18:02 Parainfluenza 4 (PCR) Not Detected (NotDetected) 10/11/23 18:02 RSV (PCR) Not Detected (NotDetected) 10/11/23 18:02 Entero/Rhino (PCR) Not Detected (NotDetected) 10/11/23 18:02 Impressions Chest X-Ray 10/11/23 17:35 SINGLE VIEW CHEST CLINICAL HISTORY: Atypical chest pain. FINDINGS: 2 AP, portable, upright chest radiographs are obtained. No prior studies are available for comparison at the time of dictation. The examination is degraded by portable technique and apical lordotic positioning. The cardiomediastinal silhouette is unremarkable. There is mild bibasilar atelectasis. The lungs and pleural spaces are otherwise clear. No pneumothorax is seen. The bony thorax is grossly intact. IMPRESSION: No active disease in the chest. ACT 112: Negative or not required by law. Electronically signed by: Jose L Garcia M.D. 10/11/2023 6:[address] 10/11/23 17:35 CT SCAN OF THE BRAIN WITHOUT IV CONTRAST CLINICAL HISTORY: Headache and dizziness. COMPARISON STUDY: No priors. TECHNIQUE: Unenhanced axial CT scan of the brain is performed from the vertex to the skull base. A dose lowering technique was utilized adhering to the principles of ALARA. CT DOSE: 625.8 mGy.cm FINDINGS: Brain parenchyma: There is age-related involutional change noting minimal microangiopathic disease. There is no hemorrhage, mass effect, or evidence of acute territorial ischemia by CT criteria. Chacon-white matter differentiation is preserved. No extra-axial fluid collection is seen. Ventricles, sulci, cisterns: Prominent secondary to involutional change. Intracranial vasculature: There is atherosclerotic calcification of the cavernous carotid arteries. Calvarium: Unremarkable. Sinuses and mastoids: The visualized paranasal sinuses are clear. The mastoid air cells are well pneumatized. Orbits: The bony orbits are grossly intact. IMPRESSION: There is no hemorrhage, mass effect, or evidence of acute territorial ischemia by CT criteria. ACT 112: Negative or not required by law. Electronically signed by: Jose L Garcia M.D. 10/11/2023 6:14 PM Chest CTA 10/11/23 18:20 CT ANGIOGRAM OF THE CHEST CLINICAL HISTORY: Dyspnea. Headache and dizziness. COMPARISON STUDY: Chest x-ray dated 10/11/2023. TECHNIQUE: Following the IV administration of 119 cc of Optiray 320, CT angiogram of the chest was performed from the upper abdomen to the thoracic inlet utilizing the pulmonary embolus protocol. Images are reviewed in the axial, sagittal, and coronal planes. 3-D MIPS images are created and assessed. IV contrast was administered without complication. A dose lowering technique was utilized adhering to the principles of ALARA. FINDINGS: Thyroid: Imaged portions of the thyroid gland are normal in size and attenuation. Thoracic aorta: There is mild atherosclerotic calcification of the thoracic aorta, which is normal in caliber and demonstrates standard 3-vessel arch anatomy. No dissection is seen. Pulmonary vasculature: The pulmonary trunk is normal in caliber. There are no filling defects identified in main, lobar, or segmental pulmonary branches to suggest pulmonary embolus. Heart: The heart is top normal in size and without pericardial effusion. The coronary arteries are densely calcified. Lungs and pleural spaces: There is mild emphysematous change. No airspace consolidation or pleural effusion is identified. Foci of air trapping are seen throughout both lungs, and there are foci of scar/atelectasis throughout both lungs. Diffuse peribronchial thickening suggests bronchitis/reactive airway disease. The trachea and central airways are clear. A 3 mm pleural-based nodule at the left lung base is seen on image #56. Mediastinum: There is no mediastinal lymphadenopathy. Linda: Clear. Axillae: There is no axillary lymphadenopathy. Upper abdomen: There is severe hepatic steatosis. Fatty sparing is noted adjacent to the gallbladder fossa. A 1.0 cm cyst is noted in the left lobe of the liver. A small hiatal hernia is identified. Skeletal structures: No lytic or blastic bony lesions are seen. Degenerative change is noted in the shoulders and spine. IMPRESSION: 1. There is no evidence of pulmonary embolus in the main, lobar, or segmental pulmonary arteries. 2. There is no airspace consolidation or pleural effusion. 3. Diffuse peribronchial thickening suggests bronchitis/reactive airway disease. Correlate clinically. 4. Foci of air trapping are seen throughout both lungs. 5. Coronary artery atherosclerosis. 6. Hepatic steatosis. 7. Additional findings as above. ACT 112: Negative or not required by law. Electronically signed by: Jose L Garcia M.D. 10/11/2023 7:15 PM Head CTA 10/11/23 18:20 CT ANGIOGRAM OF THE BRAIN; CT ANGIOGRAM OF THE NECK CLINICAL HISTORY: Headache and dizziness. COMPARISON STUDY: Unenhanced CT of the brain performed the same day 10/11/2023. TECHNIQUE: Following the IV administration of 119 of Optiray 320, CT angiogram of the head and neck was performed from the aortic arch to the vertex. Images are reviewed in the axial, sagittal, and coronal planes. 3-D MIPS images are created and assessed. IV contrast was administered without complication. All measurements were calculated based on NASCET criteria. A dose lowering technique was utilized adhering to the principles of ALARA. CT DOSE: 2610.85 mGy.cm FINDINGS: Brain parenchyma: There is no evidence of hemorrhage, mass effect, or acute territorial ischemia by CT criteria noting angiographic phase technique. There is no evidence of enhancing mass lesion on the angiogram phase images. The ventricles, sulci, and cisterns are normal in configuration. Chacon-white matter differentiation is preserved. No extra-axial fluid collection is seen. Thoracic aorta: There is atherosclerotic calcification of the thoracic aorta. Visualized portions of the thoracic aorta are normal in caliber. The aortic arch demonstrates standard 3-vessel anatomy. Right carotid arterial system: The right common carotid artery is widely patent, as are the right internal and external carotid arteries. Calcified plaque is noted in the carotid bulb. Left carotid arterial system: The left common carotid artery is widely patent, as are the left internal and external carotid arteries. Calcified plaque is noted in the carotid bulb. Vertebral arteries: There is moderate to high-grade stenosis at the origin of both vertebral arteries. The vertebral arteries are otherwise patent bilaterally and codominant. Subclavian arteries: Widely patent bilaterally. Intracranial vasculature: There is atherosclerotic calcification of the carotid bulbs. The internal carotid arteries are patent at the skull base, as are the anterior and middle cerebral arteries bilaterally. The vertebrobasilar system and posterior cerebral arteries are widely patent. The vertebral arteries are codominant. There is origin of the left posterior cerebral artery. There is no aneurysm, high-grade stenosis, or focal vessel cut off seen throughout the intracranial circulation. Jugular veins: Patent bilaterally. Dural sinuses: Patent. Lung apices: There is mild emphysematous change. Upper lobe lung parenchyma is otherwise clear as imaged. Soft tissues: The visualized pharyngeal soft tissues are normal in appearance noting angiographic phase technique. The oropharyngeal airway appears widely patent. The salivary and thyroid glands are normal in appearance. No cervical lymphadenopathy is seen. Skeletal structures: The calvarium appears intact. The cervical spine is maintained noting multilevel spondylosis. Orbits: The bony orbits are intact. Orbital contents are normal as visualized. Sinuses and mastoids: There is trace mucosal thickening within the left maxillary antrum, the ethmoid sinuses, and the frontal sinuses. The mastoid air cells are well pneumatized. IMPRESSION: 1. There is no evidence of hemorrhage, mass effect, or acute territorial ischemia by CT criteria noting angiographic phase technique. 2. Unremarkable CT angiogram of the brain. 3. 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 4. Otherwise unremarkable CT angiogram of the neck. ACT 112: Negative or not required by law. Electronically signed by: Jose L Garcia M.D. 10/11/2023 7:08 PM Neck CTA 10/11/23 18:20 CT ANGIOGRAM OF THE BRAIN; CT ANGIOGRAM OF THE NECK CLINICAL HISTORY: Headache and dizziness. COMPARISON STUDY: Unenhanced CT of the brain performed the same day 10/11/2023. TECHNIQUE: Following the IV administration of 119 of Optiray 320, CT angiogram of the head and neck was performed from the aortic arch to the vertex. Images are reviewed in the axial, sagittal, and coronal planes. 3-D MIPS images are created and assessed. IV contrast was administered without complication. All measurements were calculated based on NASCET criteria. A dose lowering technique was utilized adhering to the principles of ALARA. CT DOSE: 2610.85 mGy.cm FINDINGS: Brain parenchyma: There is no evidence of hemorrhage, mass effect, or acute territorial ischemia by CT criteria noting angiographic phase technique. There is no evidence of enhancing mass lesion on the angiogram phase images. The ventricles, sulci, and cisterns are normal in configuration. Chacon-white matter differentiation is preserved. No extra-axial fluid collection is seen. Thoracic aorta: There is atherosclerotic calcification of the thoracic aorta. Visualized portions of the thoracic aorta are normal in caliber. The aortic arch demonstrates standard 3-vessel anatomy. Right carotid arterial system: The right common carotid artery is widely patent, as are the right internal and external carotid arteries. Calcified plaque is noted in the carotid bulb. Left carotid arterial system: The left common carotid artery is widely patent, as are the left internal and external carotid arteries. Calcified plaque is not ed in the carotid bulb. Vertebral arteries: There is moderate to high-grade stenosis at the origin of both vertebral arteries. The vertebral arteries are otherwise patent bilaterally and codominant. Subclavian arteries: Widely patent bilaterally. Intracranial vasculature: There is atherosclerotic calcification of the carotid bulbs. The internal carotid arteries are patent at the skull base, as are the anterior and middle cerebral arteries bilaterally. The vertebrobasilar system and posterior cerebral arteries are widely patent. The vertebral arteries are codominant. There is origin of the left posterior cerebral artery. There is no aneurysm, high-grade stenosis, or focal vessel cut off seen throughout the intracranial circulation. Jugular veins: Patent bilaterally. Dural sinuses: Patent. Lung apices: There is mild emphysematous change. Upper lobe lung parenchyma is otherwise clear as imaged. Soft tissues: The visualized pharyngeal soft tissues are normal in appearance noting angiographic phase technique. The oropharyngeal airway appears widely patent. The salivary and thyroid glands are normal in appearance. No cervical lymphadenopathy is seen. Skeletal structures: The calvarium appears intact. The cervical spine is maintained noting multilevel spondylosis. Orbits: The bony orbits are intact. Orbital contents are normal as visualized. Sinuses and mastoids: There is trace mucosal thickening within the left maxillary antrum, the ethmoid sinuses, and the frontal sinuses. The mastoid air cells are well pneumatized. IMPRESSION: 1. There is no evidence of hemorrhage, mass effect, or acute territorial ischemia by CT criteria noting angiographic phase technique. 2. Unremarkable CT angiogram of the brain. 3. 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 4. Otherwise unremarkable CT angiogram of the neck. ACT 112: Negative or not required by law. Electronically signed by: Jose L Garcia M.D. 10/11/2023 7:08 PM Ordered Studies 10/11/23 17:35 CT head/brain wo con Stat 10/11/23 18:20 CT angio chest PE protocol Stat CTA head w con [CT angio head w con] Stat CTA neck with con [CT angio neck with con] Stat 10/12/23 13:06 CL Cath Imgs for PACS use only Routine 10/12/23 15:07 CL IVUS Coronary Single Vessel Routine Hospital Course (1) NSTEMI (non-ST elevated myocardial infarction): NSTEMI --Chest CTA:There is no evidence of pulmonary embolus in the main, lobar, or segmental pulmonary arteries. There is no airspace consolidation or pleural effusion. Diffuse peribronchial thickening suggests bronchitis/reactive airway disease. Correlate clinically. Foci of air trapping are seen throughout both lungs. Coronary artery atherosclerosis. Hepatic steatosis. -- Elevated troponin --ECHO: Mild concentric LVH. Subtle, small apical wall motion abnormality. EF 55 to 60%. Aortic valve sclerosis mild, without significant arctic valve stenosis. Left ventricle diastolic function is normal. -- HbA1c 6.0 --S/P Cardiac Cath:Severe single vessel coronary artery disease. 70% proximal LAD just before prior stent (IFR 0.87, 70% by IVUS). Normal intracardiac filling pressure. Successful PCI of proximal LAD with single JEANETTE (2.75 x 8 mm Xience; postdilated with 3.0 NC) overlapping proximal aspect of prior stent --Lipid panel normal Continue aspirin, statin, metoprolol Appreciate cardiology input Continue IV heparin Further management based on cath results Abnormal urinalysis Suspected UTI Denies any dysuria, hematuria, increased urinary frequency Empirically started on cefepime Urine culture showed only pinpoint growth Acute bronchitis--POA CTA showed no signs of consolidation Will empirically treat with doxycycline, cefepime Saturating well on room air (2) CAD (coronary artery disease): Currently not on any maintenance medications per patient (3) Ischemic cardiomyopathy: Listed on [facility] records as of 2017. Not on medications. 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 (5) Hypercholesterolemia: Not on meds (6) Smoker: smoking cessation advised DVT Px: Heparin SQ Code Status Full Code Disposition [facility] Total Time Total Time Spent Total Time Spent (In Minutes): 65 minutes Discharge Plan Discharge Items Patient Disposition: [facility] Reason For Visit: DYSPNEA, ELEVATED TROPONIN, H/O CAD WITH STENT Discharge Diagnosis: NSTEMI Acute bronchitis Prediabetes Condition on Discharge: Good Activity: Per Instructions section Exercise/Sports: Wait until after follow-up appointment Non-emergency contact: Primary Care Provider and Senior Interior Designer Call non-emergency contact if: you have any medication questions, your symptoms worsen, your pain is concerning for you and you have a fever Follow-up/Referrals: Maryana RENTERIA [Primary Care Provider] - Diet: Heart Healthy Addtl Attending Provider Instructions: Follow-up with your physician at correctional facility in 1 week Follow-up with your atm manager in 2 weeks --Your urine cultures are pending at the time of discharge. Follow-up with your physician for results. -- Complete the antibiotic course doxycycline, cefuroxime as prescribed. -- Quit smoking tobacco as advised Seek immediate medical attention if your symptoms reoccur or worsen Please take all medications as instructed on discharge list below. Please call if you have any questions or problems. You can reach a [place] hospitalist on duty at [facility] 24 hours a day by calling [phone] Home Care: * Take your medications exactly as directed. Don't skip doses. * Remember that recovery after a heart attack takes time. Plan to rest for at lease 4-8 weeks while you recover. Then return to normal activity when your doctor says it's okay. * Ask your doctor about joining a heart rehabilitation program. * Tell your doctor if you are feeling depressed. Feelings of sadness are common after a heart attack, but it is important that you speak to someone if you are feeling overwhelmed by these feelings. * If you are having chest pain, call 911 for an ambulance. Do NOT drive yourself to the hospital. * Ask your family members to learn CPR. * Learn to take your own blood pressure and pulse. Keep a record of your results. Ask your doctor when you should seek emergency medical attention. He or she will tell you which blood pressure reading is dangerous. Lifestyle Changes: * Maintain a healthy weight. Get help to lose any extra pounds. * Cut back on salt. * Limit canned, dried, packaged, and fast foods. * Don't add salt to your food. * Season foods with herbs instead of salt when you cook. * Break the smoking habit. Enroll in a stop-smoking program to improve your chances of success. * Limit fatty foods. * Ask your doctor about having your lipid levels checked regularly. * Build up your activity according to your doctor's recommendation. * Ask your doctor when it's okay to resume sexual activity. * Tell your doctor about any erectile dysfunction (ED) medication you are taking. Some ED medications are not safe if you take certain heart medications. * Try to manage stress. Follow Up: It is important for you to keep your follow up appointments with your medical provider. Pending Studies at Discharge: No Stand-Alone Forms: [facility] Skilled Items Patient informed of condition?: Yes Discharge Level of Care: Other Communicable Disease: No Discharge Prognosis: Stable Lines: None Urinary Catheter: No Medications and DC Order Prescriptions: New atorvastatin 40 mg Tablet 40 mg PO HS Qty: 30 0RF doxycycline hyclate 100 mg Capsule 100 mg PO BID Qty: 9 0RF clopidogrel 75 mg Tablet 75 mg PO QAM Qty: 30 0RF aspirin 81 mg Tablet,Delayed Release (Dr/Ec) 81 mg PO QAM Qty: 30 0RF nitroglycerin [Nitrostat] 0.4 mg Tablet, Sublingual 0.4 mg sublingual Q5M PRN (Reason: chest pain) Qty: 30 0RF metoprolol tartrate 25 mg Tablet 25 mg PO BID Qty: 60 0RF cefuroxime axetil 500 mg tablet 500 mg PO BID Qty: 9 0RF Discharge Orders: Discharge Order (Routine); Ordered 10/13/23 Ordered By: Mitesh Zimmerman/Other Patient Handouts: Prediabetes, 5 Steps for Eating Healthier Admission Data Admit Date/Time: 10/11/23 21:48 Attending Provider: Mitesh Clemente Admit Provider: Janis Bains Primary Care Provider: Maryana RENTERIA Other Providers: Nigel Guerrero; Janis Bains
--- NOTE | 2023-10-13 22:58 | Electrocardiogram Report ---
Test Reason : Blood Pressure : / mmHG Vent. Rate : 082 BPM Atrial Rate : 082 BPM P-R Int : 156 ms QRS Dur : 080 ms QT Int : 382 ms P-R-T Axes : 054 034 062 degrees QTc Int : 446 ms Poor data quality, interpretation may be adversely affected Normal sinus rhythm Cannot rule out Septal infarct (cited on or before 11-OCT-2023) Abnormal ECG When compared with ECG of 11-OCT-2023 18:35, No significant change was found Confirmed by Arun Sidhu ([id number]) on 10/13/2023 10:57:59 PM Referred By: Maryana RENTERIA Confirmed By:Arun Sidhu
--- NOTE | 2023-10-13 23:11 | Electrocardiogram Report ---
Test Reason : Blood Pressure : / mmHG Vent. Rate : 076 BPM Atrial Rate : 076 BPM P-R Int : 162 ms QRS Dur : 086 ms QT Int : 404 ms P-R-T Axes : 058 011 039 degrees QTc Int : 454 ms Poor data quality, interpretation may be adversely affected Normal sinus rhythm Cannot rule out Septal infarct (cited on or before 11-OCT-2023) Abnormal ECG When compared with ECG of 12-OCT-2023 00:22, No significant change was found Confirmed by Arun Sidhu ([id number]) on 10/13/2023 11:11:11 PM Referred By: Maryana RENTERIA Confirmed By:Arun Sidhu
--- NOTE | 2023-10-15 05:27 | Electrocardiogram Report ---
Test Reason : Blood Pressure : / mmHG Vent. Rate : 071 BPM Atrial Rate : 071 BPM P-R Int : 162 ms QRS Dur : 088 ms QT Int : 414 ms P-R-T Axes : 062 001 054 degrees QTc Int : 449 ms Normal sinus rhythm Low voltage QRS Borderline ECG When compared with ECG of 12-OCT-2023 10:07, Criteria for Septal infarct are no longer Present Confirmed by Arun Sidhu ([id number]) on 10/15/2023 5:26:53 AM Referred By: Maryana SCI Confirmed By:Arun Sidhu
--- NOTE | 2023-10-16 06:11 | Electrocardiogram Report ---
Test Reason : Blood Pressure : / mmHG Vent. Rate : 074 BPM Atrial Rate : 074 BPM P-R Int : 164 ms QRS Dur : 094 ms QT Int : 390 ms P-R-T Axes : 066 018 053 degrees QTc Int : 432 ms Normal sinus rhythm Septal infarct , age undetermined Abnormal ECG When compared with ECG of 12-OCT-2023 15:16, Septal infarct is now Present Confirmed by Arun Sidhu ([id number]) on 10/16/2023 6:11:10 AM Referred By: Maryana RENTERIA Confirmed By:Arun Sidhu
== END 2023-10-13 16:43 | DRG 322 ==
LOC: ED 17:01 → EDINP 17:01 → 4W 22:13